=== PATIENT | female | born 1945 | race Caucasian/White ===

== ENCOUNTER → 2017-06-13 08:51 | Outpatient (CLI) | payer MEDICARE, OTHER, SELFPAY ==
[2017-06-13 09:33] LABS: INR 2.89 (0.9-1.1); Prothrombin Time 31.6 seconds (9.4-11.8)
== END ==
PROVIDERS: PCP Physician Assistant; Visit Provider Physician Assistant
DX: Z79.01 Long term (current) use of anticoagulants (principal); I82.409 Acute embolism and thrombosis of unspecified deep veins of unspecified lower extremity; Z51.81 Encounter for therapeutic drug level monitoring
CPT/HCPCS: 36415; 85610

== ENCOUNTER → 2017-06-20 10:05 | Outpatient (CLI) | payer MEDICARE, SELFPAY ==
[2017-06-20 10:31] LABS: INR 3.47 (0.9-1.1)
== END ==
PROVIDERS: PCP Internal Medicine; Visit Provider Internal Medicine Interventional Cardiology
DX: Z79.01 Long term (current) use of anticoagulants (principal); I82.409 Acute embolism and thrombosis of unspecified deep veins of unspecified lower extremity; Z51.81 Encounter for therapeutic drug level monitoring
CPT/HCPCS: 36415; 85610

== ENCOUNTER → 2017-06-27 08:49 | Outpatient (CLI) | payer MEDICARE, SELFPAY ==
[2017-06-27 13:20] LABS: INR 2.29 (0.9-1.1); Prothrombin Time 24.9 seconds (9.4-11.8)
== END ==
PROVIDERS: PCP Internal Medicine; Visit Provider Physician Assistant
DX: Z79.01 Long term (current) use of anticoagulants (principal); Z51.81 Encounter for therapeutic drug level monitoring; I82.409 Acute embolism and thrombosis of unspecified deep veins of unspecified lower extremity
CPT/HCPCS: 36415; 85610

== ENCOUNTER → 2017-07-04 09:21 | Outpatient (CLI) | payer MEDICARE, SELFPAY ==
[2017-07-04 13:27] LABS: INR 2.11 (0.9-1.1)
== END ==
PROVIDERS: PCP Internal Medicine; Visit Provider Physician Assistant
DX: I82.409 Acute embolism and thrombosis of unspecified deep veins of unspecified lower extremity (principal)
CPT/HCPCS: 36415; 85610

== ENCOUNTER → 2017-07-11 07:31 | Outpatient (CLI) | payer MEDICARE, OTHER, SELFPAY ==
[2017-07-11 14:28] LABS: INR 1.82 (0.9-1.1); Prothrombin Time 19.8 seconds (9.4-11.8)
== END ==
PROVIDERS: PCP Internal Medicine; Visit Provider Physician Assistant
DX: Z79.01 Long term (current) use of anticoagulants (principal); I82.409 Acute embolism and thrombosis of unspecified deep veins of unspecified lower extremity; Z51.81 Encounter for therapeutic drug level monitoring
CPT/HCPCS: 36415; 85610

== ENCOUNTER → 2017-07-17 09:39 | Outpatient (CLI) | payer MEDICARE, SELFPAY ==
[2017-07-17 14:38] LABS: INR 2.19 (0.9-1.1); Prothrombin Time 23.9 seconds (9.4-11.8)
== END ==
PROVIDERS: PCP Physician Assistant; Visit Provider Physician Assistant
DX: Z79.01 Long term (current) use of anticoagulants (principal); Z51.81 Encounter for therapeutic drug level monitoring
CPT/HCPCS: 36415; 85610

== ENCOUNTER → 2017-07-24 08:25 | Outpatient (CLI) | payer MEDICARE, SELFPAY ==
[2017-07-24 14:32] LABS: INR 1.78 (0.9-1.1); Prothrombin Time 19.3 seconds (9.4-11.8)
== END ==
PROVIDERS: PCP Physician Assistant; Visit Provider Physician Assistant
DX: Z79.01 Long term (current) use of anticoagulants (principal); Z51.81 Encounter for therapeutic drug level monitoring; I82.409 Acute embolism and thrombosis of unspecified deep veins of unspecified lower extremity
CPT/HCPCS: 36415; 85610

== ENCOUNTER → 2017-07-30 08:58 | Outpatient (CLI) | payer MEDICARE, SELFPAY ==
[2017-07-30 15:13] LABS: INR 1.77 (0.9-1.1); Prothrombin Time 19.2 seconds (9.4-11.8)
== END ==
PROVIDERS: PCP Internal Medicine; Visit Provider Physician Assistant
DX: Z79.01 Long term (current) use of anticoagulants (principal); Z51.81 Encounter for therapeutic drug level monitoring
CPT/HCPCS: 36415; 85610

== ENCOUNTER → 2017-08-06 09:55 | Outpatient (CLI) | payer MEDICARE, OTHER, SELFPAY ==
[2017-08-06 10:35] LABS: INR 2.61 (0.9-1.1); Prothrombin Time 28.5 seconds (9.4-11.8)
== END ==
PROVIDERS: PCP Internal Medicine; Visit Provider Physician Assistant
DX: Z79.01 Long term (current) use of anticoagulants (principal); Z51.81 Encounter for therapeutic drug level monitoring; I82.409 Acute embolism and thrombosis of unspecified deep veins of unspecified lower extremity
CPT/HCPCS: 36415; 85610

== ENCOUNTER → 2017-08-13 08:47 | Outpatient (CLI) | payer MEDICARE, SELFPAY ==
[2017-08-13 09:54] LABS: Prothrombin Time 29.5 seconds (9.4-11.8)
== END ==
PROVIDERS: Visit Provider Physician Assistant
DX: Z79.01 Long term (current) use of anticoagulants; Z51.81 Encounter for therapeutic drug level monitoring; I82.409 Acute embolism and thrombosis of unspecified deep veins of unspecified lower extremity
CPT/HCPCS: 36415; 85610

== ENCOUNTER → 2017-08-20 10:51 | Outpatient (CLI) | payer MEDICARE, SELFPAY ==
[2017-08-20 11:25] LABS: INR 2.92 (0.9-1.1); Prothrombin Time 31.9 seconds (9.4-11.8)
== END ==
PROVIDERS: Visit Provider Physician Assistant
DX: Z79.01 Long term (current) use of anticoagulants (principal); Z51.81 Encounter for therapeutic drug level monitoring
CPT/HCPCS: 36415; 85610

== ENCOUNTER → 2017-08-21 08:20 | Outpatient (CLI) | payer MEDICARE, SELFPAY ==
[2017-08-21 13:44] LABS: Alanine Aminotransferase 34 U/L (12-78); Albumin Level 3.6 gm/dL (3.4-5.0); Alkaline Phosphatase 68 U/L (46-116); Aspartate Amino Transferase 21 U/L (15-37); Bilirubin,Direct 0.1 mg/dL (0.0-0.2); Bilirubin,Total 0.3 mg/dL (0.2-1.0); Chol/HDL Ratio 2.6 (1-3.5); Cholesterol 150 mg/dL (140-200); HDL Cholesterol 58 mg/dL (29-89); LDL Cholesterol 80 mg/dL (0-130); Total Protein,Serum 6.9 gm/dL (6.4-8.2); Triglycerides 58 mg/dL (30-200); VLDL Cholesterol 12 mg/dL (0-40)
== END ==
PROVIDERS: Visit Provider Internal Medicine Interventional Cardiology
DX: E78.00 Pure hypercholesterolemia, unspecified (principal)
CPT/HCPCS: 36415; 80061; 80076

== ENCOUNTER → 2017-08-27 10:45 | Outpatient (CLI) | payer MEDICARE, OTHER, SELFPAY ==
[2017-08-27 11:19] LABS: INR 3.93 (0.9-1.1)
== END ==
PROVIDERS: Visit Provider Physician Assistant
DX: Z79.01 Long term (current) use of anticoagulants (principal); Z51.81 Encounter for therapeutic drug level monitoring; I82.409 Acute embolism and thrombosis of unspecified deep veins of unspecified lower extremity
CPT/HCPCS: 36415; 85610

== ENCOUNTER → 2017-09-03 07:56 | Outpatient (CLI) | payer MEDICARE, SELFPAY ==
[2017-09-03 08:21] LABS: INR 2.28 (0.9-1.1); Prothrombin Time 24.8 seconds (9.4-11.8)
== END ==
PROVIDERS: Visit Provider Internal Medicine Interventional Cardiology
DX: Z79.01 Long term (current) use of anticoagulants (principal); Z51.81 Encounter for therapeutic drug level monitoring; I82.409 Acute embolism and thrombosis of unspecified deep veins of unspecified lower extremity
CPT/HCPCS: 36415; 85610

== ENCOUNTER → 2017-09-10 09:37 | Outpatient (CLI) | payer MEDICARE, SELFPAY ==
[2017-09-10 10:19] LABS: Prothrombin Time 44.9 seconds (9.4-11.8)
== END ==
PROVIDERS: Visit Provider Physician Assistant
DX: Z79.01 Long term (current) use of anticoagulants (principal); Z51.81 Encounter for therapeutic drug level monitoring; I82.409 Acute embolism and thrombosis of unspecified deep veins of unspecified lower extremity
CPT/HCPCS: 36415; 85610

== ENCOUNTER → 2017-09-17 10:07 | Outpatient (CLI) | payer MEDICARE, OTHER, SELFPAY ==
[2017-09-17 10:47] LABS: INR 2.41 (0.9-1.1); Prothrombin Time 26.3 seconds (9.4-11.8)
== END ==
PROVIDERS: PCP Physician Assistant; Visit Provider Physician Assistant
DX: Z79.01 Long term (current) use of anticoagulants (principal); Z51.81 Encounter for therapeutic drug level monitoring; I82.409 Acute embolism and thrombosis of unspecified deep veins of unspecified lower extremity
CPT/HCPCS: 36415; 85610

== ENCOUNTER → 2017-09-24 10:10 | Outpatient (CLI) | payer MEDICARE, SELFPAY ==
[2017-09-24 10:40] LABS: INR 2.65 (0.9-1.1); Prothrombin Time 28.9 seconds (9.4-11.8)
== END ==
PROVIDERS: Visit Provider Internal Medicine Interventional Cardiology
DX: Z79.01 Long term (current) use of anticoagulants (principal); Z51.81 Encounter for therapeutic drug level monitoring; I82.409 Acute embolism and thrombosis of unspecified deep veins of unspecified lower extremity
CPT/HCPCS: 36415; 85610

== ENCOUNTER → 2017-10-01 09:48 | Outpatient (CLI) | payer MEDICARE, SELFPAY ==
[2017-10-01 10:38] LABS: INR 2.89 (0.9-1.1); Prothrombin Time 31.6 seconds (9.4-11.8)
== END ==
PROVIDERS: Visit Provider Physician Assistant
DX: Z79.01 Long term (current) use of anticoagulants (principal); Z51.81 Encounter for therapeutic drug level monitoring; I82.409 Acute embolism and thrombosis of unspecified deep veins of unspecified lower extremity
CPT/HCPCS: 36415; 85610

== ENCOUNTER → 2017-10-08 10:51 | Outpatient (CLI) | payer MEDICARE, SELFPAY ==
[2017-10-08 11:13] LABS: INR 2.55 (0.9-1.1); Prothrombin Time 27.8 seconds (9.4-11.8)
== END ==
PROVIDERS: Visit Provider Physician Assistant
DX: Z79.01 Long term (current) use of anticoagulants (principal); Z51.81 Encounter for therapeutic drug level monitoring; I82.409 Acute embolism and thrombosis of unspecified deep veins of unspecified lower extremity
CPT/HCPCS: 36415; 85610

== ENCOUNTER → 2017-10-15 06:58 | Outpatient (CLI) | payer MEDICARE, SELFPAY ==
[2017-10-15 14:59] LABS: INR 3.29 (0.9-1.1)
== END ==
PROVIDERS: Visit Provider Physician Assistant
DX: Z79.01 Long term (current) use of anticoagulants (principal); Z51.81 Encounter for therapeutic drug level monitoring; I82.409 Acute embolism and thrombosis of unspecified deep veins of unspecified lower extremity
CPT/HCPCS: 36415; 85610

== ENCOUNTER → 2017-10-22 11:17 | Outpatient (CLI) | payer MEDICARE, SELFPAY ==
[2017-10-22 11:42] LABS: INR 3.06 (0.9-1.1); Prothrombin Time 33.4 seconds (9.4-11.8)
== END ==
PROVIDERS: Visit Provider Physician Assistant
DX: Z79.01 Long term (current) use of anticoagulants (principal); Z51.81 Encounter for therapeutic drug level monitoring; I82.409 Acute embolism and thrombosis of unspecified deep veins of unspecified lower extremity
CPT/HCPCS: 36415; 85610

== ENCOUNTER → 2018-02-05 09:49 | Outpatient (CLI) | payer MEDICARE, SELFPAY ==
[2018-02-05 10:33] LABS: Basophils % 0.9 % (0.1-2.0); Eosinophils # 0.1 K/mm3 (0.0-0.4); Eosinophils % 1.6 % (0.1-12.0); Hematocrit 42.8 % (37.0-47.0); Hemoglobin 14.2 g/dL (12.2-16.2); Lymphocytes # 1.5 K/mm3 (0.7-4.5); Lymphocytes % 37.7 K/mm3 (10-50); Mean Corpuscular HGB Conc 33.1 g/dL (31.8-35.4); Mean Corpuscular Hemoglobin 32.4 pg (27.0-31.2); Mean Platelet Volume 8.2 fl (7.4-10.4); Monocytes # 0.2 K/mm3 (0.1-1.0); Monocytes % 5.5 % (1.7-9.3); Neutrophils # 2.1 K/mm3 (1.8-7.8); Neutrophils % 54.3 % (37.0-80.0); Platelet Count 279 K/mm3 (142-424); Red Blood Count 4.37 M/mm3 (4.20-5.40); Red Cell Distribution Width 12.9 % (11.5-17.5); White Blood Count 3.9 K/mm3 (4.8-10.8)
[2018-02-05 11:21] LABS: Alanine Aminotransferase 34 U/L (12-78); Albumin Level 4.4 gm/dL (3.4-5.0); Albumin/Globulin Ratio 1.2 (1.1-1.8); Alkaline Phosphatase 79 U/L (46-116); Anion Gap 12.5 mEq/L (5-15); Aspartate Amino Transferase 24 U/L (15-37); Bilirubin,Total 0.5 mg/dL (0.2-1.0); Blood Urea Nitrogen 19 mg/dL (7-18); Calcium 9.3 mg/dL (8.5-10.1); Carbon Dioxide 30 mmol/L (21.0-32.0); Chloride 103 mmol/L (98-107); Chol/HDL Ratio 2.3 (1-3.5); Cholesterol 149 mg/dL (140-200); Creatinine,Serum 1.09 mg/dL (0.55-1.02); Estimated Glomerular Filt Rate 50 ml/min (>60); GFR (African American) 60 ML/MIN (>60); Globulin 3.6 gm/dl (1.3-3.2); Glucose 107 mg/dL (74-106); HDL Cholesterol 66 mg/dL (29-89); LDL Cholesterol 70 mg/dL (0-130); Potassium 4.5 mmoL/L (3.5-5.1); Sodium 141 mmol/L (136-145); Thyroid Stimulating Hormone 1.24 uIU/ml (0.358-3.740); Triglycerides 64 mg/dL (30-200); VLDL Cholesterol 13 mg/dL (0-40)
== END ==
PROVIDERS: PCP Internal Medicine; Visit Provider Internal Medicine
DX: I10 Essential (primary) hypertension (principal); E03.9 Hypothyroidism, unspecified; E78.5 Hyperlipidemia, unspecified
CPT/HCPCS: 36415; 80053; 80061; 84443; 85025

== ENCOUNTER → 2018-03-06 09:40 | Outpatient (CLI) | payer MEDICARE, OTHER, SELFPAY ==
[2018-03-06 14:15] LABS: Basophils % 0.6 % (0.1-2.0); Eosinophils # 0.1 K/mm3 (0.0-0.4); Hematocrit 41.1 % (37.0-47.0); Hemoglobin 13.1 g/dL (12.2-16.2); Lymphocytes # 1.4 K/mm3 (0.7-4.5); Lymphocytes % 33.5 K/mm3 (10-50); Mean Corpuscular HGB Conc 31.9 g/dL (31.8-35.4); Mean Corpuscular Hemoglobin 31.5 pg (27.0-31.2); Mean Corpuscular Volume 98.7 fl (81-99); Mean Platelet Volume 9.3 fl (7.4-10.4); Monocytes # 0.2 K/mm3 (0.1-1.0); Monocytes % 5.9 % (1.7-9.3); Neutrophils # 2.4 K/mm3 (1.8-7.8); Platelet Count 260 K/mm3 (142-424); Red Blood Count 4.16 M/mm3 (4.20-5.40); Red Cell Distribution Width 12.9 % (11.5-17.5); White Blood Count 4.1 K/mm3 (4.8-10.8)
[2018-03-06 14:17] LABS: Anion Gap 10.2 mEq/L (5-15); Blood Urea Nitrogen 16 mg/dL (7-18); Calcium 8.8 mg/dL (8.5-10.1); Carbon Dioxide 30 mmol/L (21.0-32.0); Chloride 106 mmol/L (98-107); Creatinine,Serum 0.95 mg/dL (0.55-1.02); Estimated Glomerular Filt Rate 58 ml/min (>60); GFR (African American) 70 ML/MIN (>60); Glucose 117 mg/dL (74-106); Potassium 4.2 mmoL/L (3.5-5.1); Sodium 142 mmol/L (136-145)
== END ==
PROVIDERS: PCP Internal Medicine; Visit Provider Internal Medicine
DX: E03.9 Hypothyroidism, unspecified (principal); E78.5 Hyperlipidemia, unspecified; I10 Essential (primary) hypertension; M19.90 Unspecified osteoarthritis, unspecified site
CPT/HCPCS: 36415; 80048; 85025

== ENCOUNTER → 2018-06-17 10:11 | Outpatient (CLI) | payer MEDICARE, SELFPAY ==
[2018-06-17 14:01] LABS: INR 1.84 (0.9-1.1); Prothrombin Time 18.6 seconds (9.4-11.8)
== END ==
PROVIDERS: PCP Internal Medicine; Visit Provider Physician Assistant
DX: Z51.81 Encounter for therapeutic drug level monitoring (principal); Z79.01 Long term (current) use of anticoagulants; I82.409 Acute embolism and thrombosis of unspecified deep veins of unspecified lower extremity
CPT/HCPCS: 36415; 85610

== ENCOUNTER → 2018-08-07 09:46 | Outpatient (CLI) | payer MEDICARE, OTHER, SELFPAY ==
[2018-08-07 14:20] LABS: Alanine Aminotransferase 31 U/L (12-78); Albumin Level 4.1 gm/dL (3.4-5.0); Alkaline Phosphatase 69 U/L (46-116); Aspartate Amino Transferase 21 U/L (15-37); Bilirubin,Direct 0.1 mg/dL (0.0-0.2); Bilirubin,Indirect 0.3 mg/dL (0.0-0.9); Bilirubin,Total 0.4 mg/dL (0.2-1.0); Chol/HDL Ratio 2.2 (1-3.5); Cholesterol 124 mg/dL (140-200); HDL Cholesterol 57 mg/dL (29-89); LDL Cholesterol 57 mg/dL (0-130); Total Protein,Serum 7.5 gm/dL (6.4-8.2); Triglycerides 52 mg/dL (30-200); VLDL Cholesterol 10 mg/dL (0-40)
[2018-08-07 14:31] LABS: Thyroid Stimulating Hormone 1.56 uIU/ml (0.358-3.740)
== END ==
PROVIDERS: PCP Internal Medicine; Visit Provider Internal Medicine Interventional Cardiology
DX: E78.00 Pure hypercholesterolemia, unspecified (principal); E03.9 Hypothyroidism, unspecified
CPT/HCPCS: 36415; 80061; 80076; 84443

== ENCOUNTER → 2019-04-21 07:03 | Outpatient (CLI) | payer MEDICARE, OTHER, SELFPAY ==
[2019-04-21 13:58] LABS: Alanine Aminotransferase 23 U/L (12-78); Albumin Level 3.4 gm/dL (3.4-5.0); Alkaline Phosphatase 55 U/L (46-116); Aspartate Amino Transferase 23 U/L (15-37); Bilirubin,Direct 0.1 mg/dL (0.0-0.2); Bilirubin,Indirect 0.3 mg/dL (0.0-0.9); Bilirubin,Total 0.4 mg/dL (0.2-1.0); Chol/HDL Ratio 2.5 (1-3.5); Cholesterol 132 mg/dL (140-200); HDL Cholesterol 52 mg/dL (29-89); LDL Cholesterol 69 mg/dL (0-130); Total Protein,Serum 6.4 gm/dL (6.4-8.2); Triglycerides 55 mg/dL (30-200); VLDL Cholesterol 11 mg/dL (0-40)
== END ==
PROVIDERS: PCP Internal Medicine; Visit Provider Internal Medicine Interventional Cardiology
DX: E78.00 Pure hypercholesterolemia, unspecified (principal)
CPT/HCPCS: 36415; 80061; 80076

== ENCOUNTER → 2019-06-18 13:26 | Outpatient (CLI) | payer MEDICARE, OTHER, SELFPAY ==
[2019-06-18 16:06] LABS: Alanine Aminotransferase 25 U/L (12-78); Albumin Level 3.8 gm/dL (3.4-5.0); Alkaline Phosphatase 64 U/L (46-116); Aspartate Amino Transferase 26 U/L (15-37); Bilirubin,Direct 0.1 mg/dL (0.0-0.2); Bilirubin,Indirect 0.3 mg/dL (0.0-0.9); Bilirubin,Total 0.4 mg/dL (0.2-1.0); Chol/HDL Ratio 3.8 (1-3.5); Cholesterol 215 mg/dL (140-200); HDL Cholesterol 56 mg/dL (29-89); LDL Cholesterol 139 mg/dL (0-130); Total Protein,Serum 6.9 gm/dL (6.4-8.2); Triglycerides 98 mg/dL (30-200); VLDL Cholesterol 20 mg/dL (0-40)
== END ==
PROVIDERS: Visit Provider Internal Medicine Interventional Cardiology
DX: E78.00 Pure hypercholesterolemia, unspecified (principal)
CPT/HCPCS: 36415; 80061; 80076

== ENCOUNTER → 2019-07-28 07:04 | Outpatient (CLI) | payer MEDICARE, OTHER, SELFPAY ==
[2019-07-28 13:52] LABS: Alanine Aminotransferase 29 U/L (9-52); Albumin Level 3.8 g/dL (3.4-5.0); Alkaline Phosphatase 61 U/L (46-116); Aspartate Amino Transferase 24 U/L (15-37); Bilirubin,Direct 0.1 mg/dL (0.0-0.2); Bilirubin,Indirect 0.3 mg/dL (0.0-0.9); Bilirubin,Total 0.4 mg/dL (0.2-1.0); Chol/HDL Ratio 4.2 (1-3.5); Cholesterol 254 mg/dL (140-200); HDL Cholesterol 61 mg/dL (29-89); LDL Cholesterol 176 mg/dL (0-130); Total Protein,Serum 7.2 g/dL (6.4-8.2); Triglycerides 83 mg/dL (30-200); VLDL Cholesterol 17 mg/dL (0-40)
== END ==
PROVIDERS: Visit Provider Internal Medicine Interventional Cardiology
DX: E78.00 Pure hypercholesterolemia, unspecified (principal)
CPT/HCPCS: 36415; 80061; 80076

== ENCOUNTER → 2019-12-08 07:07 | Outpatient (CLI) | payer MEDICARE, OTHER, SELFPAY ==
[2019-12-08 14:18] LABS: Alanine Aminotransferase 19 U/L (12-78); Alkaline Phosphatase 60 U/L (38-126); Aspartate Amino Transferase 31 U/L (14-36); Bilirubin,Indirect 0.5 mg/dL (0.0-0.9); Bilirubin,Total 0.5 mg/dl (0.2-1.3); Bilirubin,Unconjugated 0.5 mg/dL (0.0-1.1)
[2019-12-08 14:19] LABS: Albumin Level 3.9 g/dl (3.5-5.0); Chol/HDL Ratio 4.1 (1-3.5); Cholesterol 219 mg/dl (140-200); HDL Cholesterol 54 mg/dl (40-60); Total Protein,Serum 6.9 g/dl (6.3-8.2); Triglycerides 72 mg/dl (30-150); VLDL Cholesterol 14 mg/dL (0-40)
[2019-12-08 14:30] LABS: Direct LDL Cholesterol 138.12 mg/dL (100-129)
== END ==
PROVIDERS: PCP Internal Medicine; Visit Provider Internal Medicine Interventional Cardiology
DX: E78.00 Pure hypercholesterolemia, unspecified (principal)
CPT/HCPCS: 36415; 80061; 80076

== ENCOUNTER → 2020-02-02 07:03 | Outpatient (CLI) | payer MEDICARE, OTHER, SELFPAY ==
[2020-02-02 14:01] LABS: Alanine Aminotransferase 20 U/L (12-78); Albumin Level 3.8 g/dl (3.5-5.0); Alkaline Phosphatase 73 U/L (38-126); Aspartate Amino Transferase 32 U/L (14-36); Bilirubin,Indirect 0.5 mg/dL (0.0-0.9); Bilirubin,Total 0.5 mg/dl (0.2-1.3); Bilirubin,Unconjugated 0.4 mg/dL (0.0-1.1); Chol/HDL Ratio 4.4 (1-3.5); Cholesterol 240 mg/dl (140-200); HDL Cholesterol 55 mg/dl (40-60); Total Protein,Serum 6.9 g/dl (6.3-8.2); Triglycerides 81 mg/dl (30-150); VLDL Cholesterol 16 mg/dL (0-40)
[2020-02-02 14:12] LABS: Direct LDL Cholesterol 145.93 mg/dL (100-129)
== END ==
PROVIDERS: Visit Provider Physician Assistant
DX: E78.00 Pure hypercholesterolemia, unspecified (principal)
CPT/HCPCS: 36415; 80061; 80076

== ENCOUNTER → 2020-03-31 08:23 | Outpatient (CLI) | payer MEDICARE, OTHER, SELFPAY ==
[2020-03-31 09:57] LABS: Alanine Aminotransferase 27 U/L (12-78); Alkaline Phosphatase 68 U/L (38-126); Aspartate Amino Transferase 26 U/L (14-36); Bilirubin,Indirect 0.6 mg/dL (0.0-0.9); Bilirubin,Total 0.6 mg/dl (0.2-1.3); Bilirubin,Unconjugated 0.6 mg/dL (0.0-1.1); Chol/HDL Ratio 2.8 (1-3.5); Cholesterol 162 mg/dl (140-200); HDL Cholesterol 58 mg/dl (40-60); Total Protein,Serum 7.1 g/dl (6.3-8.2); Triglycerides 107 mg/dl (30-150); VLDL Cholesterol 21 mg/dL (0-40)
[2020-03-31 10:19] LABS: Direct LDL Cholesterol 82.45 mg/dL (100-129)
== END ==
PROVIDERS: Visit Provider Internal Medicine Interventional Cardiology
DX: E78.00 Pure hypercholesterolemia, unspecified (principal)
CPT/HCPCS: 36415; 80061; 80076

== ENCOUNTER → 2020-04-12 12:30 | Outpatient (CLI) | payer MEDICARE, OTHER, SELFPAY ==
[2020-04-12 13:33] LABS: INR 3.84 (0.9-1.1); Prothrombin Time 37.7 seconds (9.4-11.8)
== END ==
PROVIDERS: PCP Internal Medicine; Visit Provider Internal Medicine
DX: Z51.81 Encounter for therapeutic drug level monitoring (principal); Z79.01 Long term (current) use of anticoagulants
CPT/HCPCS: 36415; 85610

== ENCOUNTER → 2020-09-09 07:35 | Outpatient (CLI) | payer MEDICARE, OTHER, SELFPAY ==
[2020-09-09 15:25] LABS: Alanine Aminotransferase 24 U/L (12-78); Albumin Level 4.2 g/dl (3.5-5.0); Alkaline Phosphatase 56 U/L (38-126); Aspartate Amino Transferase 35 U/L (14-36); Bilirubin,Indirect 0.3 mg/dL (0.0-0.9); Bilirubin,Total 0.3 mg/dl (0.2-1.3); Bilirubin,Unconjugated 0.4 mg/dL (0.0-1.1); Chol/HDL Ratio 2.9 (1-3.5); Cholesterol 154 mg/dl (140-200); HDL Cholesterol 54 mg/dl (40-60); Total Protein,Serum 7.1 g/dl (6.3-8.2); Triglycerides 69 mg/dl (30-150); VLDL Cholesterol 14 mg/dL (0-40)
[2020-09-09 15:37] LABS: Direct LDL Cholesterol 73.14 mg/dL (100-129)
== END ==
PROVIDERS: Visit Provider Internal Medicine Interventional Cardiology
DX: E78.00 Pure hypercholesterolemia, unspecified (principal)
CPT/HCPCS: 36415; 80061; 80076

== ENCOUNTER → 2020-09-20 12:58 | Outpatient (CLI) | payer MEDICARE, OTHER, SELFPAY ==
--- NOTE | 2020-09-20 13:05 | XR_ITS ---
PROCEDURE: XR FOOT WT BEARING LT 3V CLINICAL INDICATION: pain COMPARISON: No exams were available for comparison FINDINGS: No fracture or dislocation. No lytic or blastic change. There is normal mineralization. There is mild hallux valgus with mild osteoarthritic change at the 1st MTP joint. Osteoarthritic change also present 2nd tarsal metatarsal junction. Normal alignment. Other findings:None. IMPRESSION: Hallux valgus with osteoarthritis of the 1st MTP joint and bunion formation at the distal aspect of the 1st metatarsal. Osteoarthritis also at the 2nd tarsometatarsal junction Dictated by: Wm Gardner MD 09/20/2020 13:36 Wm Gardner MD in [place] 09/20/2020 13:36
--- NOTE | 2020-09-20 13:05 | XR_ITS ---
PROCEDURE: XR FOOT WT BEARING RT 3V CLINICAL INDICATION: pain COMPARISON: No exams were available for comparison FINDINGS: Moderate hallux valgus with osteoarthritis of the 1st MTP joint and bunion formation at the distal aspect of the 1st metatarsal. Osteoarthritic changes are present at the head of the 1st metatarsal with the underlying sesamoid. Osteoarthritic changes are present at the tarsal metatarsal junction. There is a small calcaneal spur. Small area of exostosis involves the mid aspect of the medial cuneiform anteriorly and at the base of the 1st metatarsal medially IMPRESSION: Hallux valgus with osteoarthritis of the 1st MTP joint and bunion formation at the distal aspect of the 1st metatarsal. Osteoarthritic changes Dictated by: Wm Gardner MD 09/20/2020 13:44 Wm Gardner MD in [place] 09/20/2020 13:44
== END ==
PROVIDERS: PCP Internal Medicine; Visit Provider Nurse Practitioner
DX: M79.672 Pain in left foot (principal); M79.671 Pain in right foot
CPT/HCPCS: 73630

== ENCOUNTER → 2020-11-11 07:25 | Outpatient (CLI) | payer MEDICARE, OTHER, SELFPAY ==
[2020-11-11 13:21] LABS: Alanine Aminotransferase 24 U/L (12-78); Albumin Level 4.1 g/dl (3.5-5.0); Alkaline Phosphatase 66 U/L (38-126); Aspartate Amino Transferase 32 U/L (14-36); Bilirubin,Direct 0.2 mg/dl (0.0-0.4); Bilirubin,Indirect 0.3 mg/dL (0.0-0.9); Bilirubin,Total 0.5 mg/dl (0.2-1.3); Bilirubin,Unconjugated 0.2 mg/dL (0.0-1.1); Chol/HDL Ratio 3.3 (1-3.5); Cholesterol 173 mg/dl (140-200); HDL Cholesterol 52 mg/dl (40-60); Total Protein,Serum 7.1 g/dl (6.3-8.2); Triglycerides 92 mg/dl (30-150); VLDL Cholesterol 18 mg/dL (0-40)
[2020-11-11 13:34] LABS: Direct LDL Cholesterol 86.44 mg/dL (100-129)
== END ==
PROVIDERS: Visit Provider Internal Medicine Interventional Cardiology
DX: E78.00 Pure hypercholesterolemia, unspecified (principal)
CPT/HCPCS: 36415; 80061; 80076

== ENCOUNTER → 2021-02-25 07:32 | Outpatient (CLI) | payer MEDICARE, OTHER, SELFPAY ==
[2021-02-25 13:44] LABS: Basophils % 0.5 % (0.1-2.0); Eosinophils # 0.1 K/mm3 (0.0-0.4); Eosinophils % 1.8 % (0.1-12.0); Hematocrit 42.4 % (37.0-47.0); Hemoglobin 13.5 g/dL (12.2-16.2); Lymphocytes # 1.4 K/mm3 (0.7-4.5); Lymphocytes % 33.9 % (10-50); Mean Corpuscular HGB Conc 31.9 g/dL (31.8-35.4); Mean Corpuscular Hemoglobin 32.5 pg (27.0-31.2); Mean Corpuscular Volume 101.8 fl (81-99); Mean Platelet Volume 10.3 fl (7.4-10.4); Monocytes # 0.3 K/mm3 (0.1-1.0); Monocytes % 6.3 % (1.7-9.3); Neutrophils # 2.4 K/mm3 (1.8-7.8); Neutrophils % 57.5 % (37.0-80.0); Platelet Count 258 K/mm3 (142-424); Red Blood Count 4.16 M/mm3 (4.20-5.40); Red Cell Distribution Width 12.8 % (11.5-17.5); White Blood Count 4.2 K/mm3 (4.8-10.8)
[2021-02-25 13:51] LABS: Chloride 103 mmol/L (98-107); Potassium 4.3 mmoL/L (3.5-5.1); Sodium 139 mmol/L (136-145)
[2021-02-25 13:53] LABS: Blood Urea Nitrogen 16 mg/dl (7-17); Estimated Glomerular Filt Rate 82 ml/min (>60); GFR (African American) 99 ML/MIN (>60)
[2021-02-25 13:54] LABS: Alanine Aminotransferase 23 U/L (12-78); Albumin Level 3.8 g/dl (3.5-5.0); Alkaline Phosphatase 67 U/L (38-126); Anion Gap 10.3 mEq/L (5-15); Aspartate Amino Transferase 32 U/L (14-36); Bilirubin,Direct 0.1 mg/dl (0.0-0.4); Bilirubin,Indirect 0.4 mg/dL (0.0-0.9); Bilirubin,Total 0.5 mg/dl (0.2-1.3); Bilirubin,Unconjugated 0.4 mg/dL (0.0-1.1); Calcium 9.6 mg/dl (8.4-10.2); Carbon Dioxide 30 mmol/L (22.0-30.0); Chol/HDL Ratio 2.9 (1-3.5); Cholesterol 159 mg/dl (140-200); Glucose 103 mg/dl (74-100); HDL Cholesterol 55 mg/dl (40-60); Total Protein,Serum 6.9 g/dl (6.3-8.2); Triglycerides 85 mg/dl (30-150); VLDL Cholesterol 17 mg/dL (0-40)
[2021-02-25 14:05] LABS: Direct LDL Cholesterol 73.54 mg/dL (100-129)
== END ==
PROVIDERS: Visit Provider Internal Medicine Interventional Cardiology
DX: I10 Essential (primary) hypertension (principal); E78.00 Pure hypercholesterolemia, unspecified
CPT/HCPCS: 36415; 80048; 80061; 80076; 85025

== ENCOUNTER → 2021-03-10 15:10 | Outpatient (CLI) | payer MEDICARE, OTHER, SELFPAY | PROVIDERS: PCP Internal Medicine; Visit Provider Nurse Practitioner | DX: Z20.822 Contact with and (suspected) exposure to COVID-19 (principal); U07.1 COVID-19 | CPT/HCPCS: C9803; U0003; U0005 ==

== ENCOUNTER 2021-03-13 09:41 | Outpatient (CLI) | payer MEDICARE, OTHER, SELFPAY ==
[2021-03-13] VITALS (7 sets, daily range): BP systolic 103–116; BP diastolic 43–56; PULSE 60–66; RESP 16–18; TEMP 36.5–36.8; O2SAT 95–100
== END 2021-03-13 12:15 | disposition home or self-care (01) ==
PROVIDERS: PCP Internal Medicine; Visit Provider Internal Medicine
DX: U07.1 COVID-19 (principal)
CPT/HCPCS: 96365

== ENCOUNTER 2021-04-14 17:04 | Emergency (ER) | payer MEDICARE, OTHER, SELFPAY ==
[2021-04-14 17:05] VITALS: BP 196/99; PULSE 76; RESP 20; TEMP 36.7; O2SAT 98; BMI 27.3
--- NOTE | 2021-04-14 17:31 | XR_ITS ---
PROCEDURE INFORMATION: Exam: XR Chest Exam date and time: 04/14/2021 5:31 PM Age: 75 years old Clinical indication: Other: High; Additional info: High BP TECHNIQUE: Imaging protocol: XR of the chest. Views: 2 views. COMPARISON: CR CXR CHEST(2 VIEWS-NOT PORTABLE) 06/29/2014 10:16 AM FINDINGS: Lungs: Unremarkable. No consolidation. Pleural spaces: Unremarkable. No pleural effusion. No pneumothorax. Heart/Mediastinum: Unremarkable. No cardiomegaly. Bones/joints: Unremarkable. IMPRESSION: No acute findings.
--- NOTE | 2021-04-14 18:00 | ECG_ITS ---
APPROVED REPORT Exam: Resting ECG HR:70 bpm ECG Measurements Heart Rate 70 AXES NE 168 P 74 QRSd 90 QRS 39 QT 374 T 51 QTc 403 Conclusion Normal sinus rhythm Possible Left atrial enlargement Septal infarct, age undetermined Abnormal ECG Electronically signed by : Sae Bay MD 04/15/2021 22:38:15
[2021-04-14 18:18] LABS: Basophils # 0.1 K/mm3 (0-0.2); Basophils % 1.6 % (0.1-2.0); Eosinophils # 0.1 K/mm3 (0.0-0.4); Eosinophils % 1.9 % (0.1-12.0); Hematocrit 41.1 % (37.0-47.0); Hemoglobin 13.3 g/dL (12.2-16.2); Lymphocytes # 1.7 K/mm3 (0.7-4.5); Lymphocytes % 26.9 % (10-50); Mean Corpuscular HGB Conc 32.2 g/dL (31.8-35.4); Mean Corpuscular Hemoglobin 32.2 pg (27.0-31.2); Mean Corpuscular Volume 100.1 fl (81-99); Mean Platelet Volume 7.8 fl (7.4-10.4); Monocytes # 0.4 K/mm3 (0.1-1.0); Monocytes % 6.3 % (1.7-9.3); Neutrophils # 3.9 K/mm3 (1.8-7.8); Neutrophils % 63.2 % (37.0-80.0); Platelet Count 304 K/mm3 (142-424); Red Blood Count 4.11 M/mm3 (4.20-5.40); Red Cell Distribution Width 13.5 % (11.5-17.5); White Blood Count 6.2 K/mm3 (4.8-10.8)
[2021-04-14 18:21] LABS: Chloride 92 mmol/L (98-107)
[2021-04-14 18:22] LABS: Potassium 3.9 mmoL/L (3.5-5.1); Sodium 131 mmol/L (136-145)
[2021-04-14 18:24] LABS: Alanine Aminotransferase 32 U/L (12-78); Alkaline Phosphatase 69 U/L (38-126); Aspartate Amino Transferase 42 U/L (14-36); Bilirubin,Total 0.3 mg/dl (0.2-1.3); Blood Urea Nitrogen 9 mg/dl (7-17); Creatinine Clearance Estimated 65 mL/min (50-200); Estimated Glomerular Filt Rate 98 ml/min (>60); GFR (African American) 119 ML/MIN (>60)
[2021-04-14 18:25] LABS: Albumin Level 4.3 g/dl (3.5-5.0); Albumin/Globulin Ratio 1.3 (1.1-1.8); Anion Gap 12.9 mEq/L (5-15); Calcium 9.5 mg/dl (8.4-10.2); Carbon Dioxide 30 mmol/L (22.0-30.0); Globulin 3.2 g/dL (1.3-3.2); Glucose 109 mg/dl (74-100); Total Protein,Serum 7.5 g/dl (6.3-8.2)
[2021-04-14 18:38] LABS: Troponin I < 0.01 ng/ml (0.00-0.034)
--- NOTE | 2021-04-14 18:54 | HMH.EDGENADL ---
ED Disposition Clinical Impression: HTN (hypertension) Qualifiers: Hypertension type: primary hypertension Qualified Code(s): I10 - Essential (primary) hypertension Disposition: Home, Self-Care Condition on Discharge: Good Referrals: Marty Campa [Primary Care Provider] - - Critical Care Critical Care Time: No Attestation: On 04/14/21, the high probability of a clinically significant, sudden or life threatening deterioration of the following system(s) required my full and direct attention, intervention and personal management. The time I documented below is in addition to time spent performing reported procedures but includes the following listed in this critical care notation. Medical Decision Making - Medical Records Medical records reviewed: Yes: I reviewed the patient's medical records. - Ortiz Inquiry Pt receiving controlled substance: No Vital Signs: 04/14/21 17:05 04/14/21 19:35 Temperature 98.1 F 98.1 F Temperature Source Oral Pulse Rate 72 Pulse Rate [Left Radial] 76 Respiratory Rate 20 18 Blood Pressure 167/72 H Blood Pressure [Right Arm] 196/99 H Blood Pressure Mean [Right Arm] 131 Blood Pressure Source [Right Arm] Automatic Cuff Blood Pressure Position [Right Arm] Sitting 02 Sat by Pulse Oximetry 98 Oxygen Delivery Method Room Air - Lab Data Lab Results 04/14/21 18:05: WBC 6.2, RBC 4.11 L, Hgb 13.3, Hct 41.1, MCV 100.1 H, MCH 32.2 H, MCHC 32.2, RDW 13.5, Plt Count 304, MPV 7.8, Neut % (Auto) 63.2, Lymph % (Auto) 26.9, [place] % (Auto) 6.3, Eos % (Auto) 1.9, Baso % (Auto) 1.6, Neut # (Auto) 3.9, Lymph # (Auto) 1.7, [place] # (Auto) 0.4, Eos # (Auto) 0.1, Baso # (Auto) 0.1 04/14/21 18:05: Sodium 131 L, Potassium 3.9, Chloride 92 L, Carbon Dioxide 30, Anion Gap 12.9, BUN 9, Creatinine 0.60, Estimated Creat Clear 65, Estimated GFR 98, Est GFR ( Amer) 119, Glucose 109 H, Calcium 9.5, Total Bilirubin 0.3, AST 42 H, ALT 32, Alkaline Phosphatase 69, Troponin I < 0.01, Total Protein 7.5, Albumin 4.3, Globulin 3.2, Albumin/Globulin Ratio 1.3 Result diagrams: 04/14/21 18:05 04/14/21 18:05 Orders (Tests/Meds): ED MEDICATIONS Discontinued Medications Generic Name Dose Route Start Last Admin Trade Name Dat PRN Reason Stop Dose Admin Hydralazine HCl 10 mg 04/14/21 18:02 04/14/21 18:19 Hydralazine 20mg/Ml Vial IV 04/14/21 18:03 10 mg ONCE ONE Administration Medical Decision Narrative: Patient is a 75-year-old female who presented to the emergency department with asymptomatic hypertension. Differential diagnosis this patient includes essential hypertension, psychosocial stressors, anxiety, ACS. Have low suspicion for ACS however did rule out with chest x-ray, EKG, CBC, CMP as well as troponin. Initial troponin was within normal limits. Patient was given 10 of hydralazine while here in the emergency department with decrease of blood pressures from the 190s down to the 160s. Patient's lack of symptoms, blood pressure and pressure management as well as goal for her blood pressure was discussed with her. Follow-up with her primary care physician and continue to keep track of her blood pressures. General Adult HPI - General Chief complaint: Recheck/Abnormal Lab/Rx Stated complaint: high blood pressure Time Seen by Provider: 04/14/21 17:15 Mode of Arrival: Ambulatory Limitations: No Limitations Description of Symptoms (Recalled from ER Triage Doc. by RN): c/o high blood pressure with feeling of numbness in the back of her head. - History of Present Illness HPI narrative: Patient is a 75-year-old female presenting to the emergency department with chief complaint of high blood pressure. She states that she checks her blood pressure every morning and that for the past 3 days it has been high. She also states that every time that her blood pressure gets elevated she has a numb strange feeling at the back of her neck. She also states that she is very anxious for the p
[2021-04-14 19:35] VITALS: BP 167/72; PULSE 72; RESP 18; TEMP 36.7; O2SAT 98
== END 2021-04-14 19:37 | disposition home or self-care (01) ==
PROVIDERS: Emergency Provider Emergency Medicine; PCP Internal Medicine
DX: R20.2 Paresthesia of skin (principal); I10 Essential (primary) hypertension
CPT/HCPCS: 71046; 80053; 84484; 85025; 93005; 96374; 99283

== ENCOUNTER → 2021-04-26 07:45 | Outpatient (CLI) | payer MEDICARE, OTHER, SELFPAY ==
[2021-04-26 08:13] LABS: Basophils # 0.1 K/mm3 (0-0.2); Basophils % 0.8 % (0.1-2.0); Eosinophils # 0.1 K/mm3 (0.0-0.4); Eosinophils % 1.2 % (0.1-12.0); Hematocrit 40.2 % (37.0-47.0); Hemoglobin 13.4 g/dL (12.2-16.2); Lymphocytes # 1.5 K/mm3 (0.7-4.5); Lymphocytes % 26.7 % (10-50); Mean Corpuscular HGB Conc 33.3 g/dL (31.8-35.4); Mean Corpuscular Hemoglobin 32.5 pg (27.0-31.2); Mean Corpuscular Volume 97.4 fl (81-99); Mean Platelet Volume 9.2 fl (7.4-10.4); Monocytes # 0.3 K/mm3 (0.1-1.0); Monocytes % 5.8 % (1.7-9.3); Neutrophils # 3.7 K/mm3 (1.8-7.8); Neutrophils % 65.4 % (37.0-80.0); Platelet Count 341 K/mm3 (142-424); Red Blood Count 4.13 M/mm3 (4.20-5.40); Red Cell Distribution Width 13.4 % (11.5-17.5); White Blood Count 5.6 K/mm3 (4.8-10.8)
[2021-04-26 08:50] LABS: Alanine Aminotransferase 37 U/L (12-78); Albumin Level 4.2 g/dl (3.5-5.0); Alkaline Phosphatase 53 U/L (38-126); Anion Gap 10.4 mEq/L (5-15); Aspartate Amino Transferase 44 U/L (14-36); Bilirubin,Indirect 0.4 mg/dL (0.0-0.9); Bilirubin,Total 0.4 mg/dl (0.2-1.3); Bilirubin,Unconjugated 0.4 mg/dL (0.0-1.1); Blood Urea Nitrogen 12 mg/dl (7-17); Calcium 9.7 mg/dl (8.4-10.2); Carbon Dioxide 32 mmol/L (22.0-30.0); Chloride 95 mmol/L (98-107); Chol/HDL Ratio 2.2 (1-3.5); Cholesterol 136 mg/dl (140-200); Estimated Glomerular Filt Rate 98 ml/min (>60); GFR (African American) 119 ML/MIN (>60); Glucose 118 mg/dl (74-100); HDL Cholesterol 61 mg/dl (40-60); Potassium 4.4 mmoL/L (3.5-5.1); Sodium 133 mmol/L (136-145); Total Protein,Serum 7.1 g/dl (6.3-8.2); Triglycerides 66 mg/dl (30-150); VLDL Cholesterol 13 mg/dL (0-40)
[2021-04-26 09:00] LABS: Direct LDL Cholesterol 84.62 mg/dL (100-129)
== END ==
PROVIDERS: Visit Provider Physician Assistant
DX: I10 Essential (primary) hypertension (principal); E78.00 Pure hypercholesterolemia, unspecified
CPT/HCPCS: 36415; 80048; 80061; 80076; 85025

== ENCOUNTER → 2021-06-14 11:29 | Outpatient (CLI) | payer MEDICARE, OTHER, SELFPAY ==
[2021-06-14 12:55] LABS: Free T4 (Free Thyroxine) 1.58 ng/dl (0.78-2.19)
[2021-06-14 13:09] LABS: Thyroid Stimulating Hormone 1.96 uIU/mL (0.465-4.68)
== END ==
PROVIDERS: PCP Internal Medicine; Visit Provider Internal Medicine
DX: E03.9 Hypothyroidism, unspecified (principal)
CPT/HCPCS: 36415; 84439; 84443

== ENCOUNTER → 2021-07-04 07:03 | Outpatient (CLI) | payer MEDICARE, OTHER, SELFPAY ==
--- NOTE | 2021-07-04 09:18 | ECG_ITS ---
APPROVED REPORT Exam: Resting ECG HR:69 bpm ECG Measurements Heart Rate 69 AXES AK 157 P 79 QRSd 88 QRS 93 QT 365 T -9 QTc 385 Conclusion SINUS RHYTHM BORDERLINE RIGHT AXIS DEVIATION [QRS AXIS > 90] NONSPECIFIC ST & T-WAVE ABNORMALITY ABNORMAL ECG UNCONFIRMED REPORT Electronically signed by : Sae Bay MD 07/04/2021 18:34:01
[2021-07-04 16:26] LABS: Alanine Aminotransferase 27 U/L (12-78); Alkaline Phosphatase 57 U/L (38-126); Aspartate Amino Transferase 37 U/L (14-36); Bilirubin,Direct 0.1 mg/dl (0.0-0.4); Bilirubin,Indirect 0.4 mg/dL (0.0-0.9); Bilirubin,Total 0.5 mg/dl (0.2-1.3); Bilirubin,Unconjugated 0.4 mg/dL (0.0-1.1); Chol/HDL Ratio 4.7 (1-3.5); Cholesterol 227 mg/dl (140-200); HDL Cholesterol 48 mg/dl (40-60); Total Protein,Serum 6.9 g/dl (6.3-8.2); Triglycerides 87 mg/dl (30-150); VLDL Cholesterol 17 mg/dL (0-40)
[2021-07-04 16:37] LABS: Direct LDL Cholesterol 142.77 mg/dL (100-129)
== END ==
PROVIDERS: Visit Provider Internal Medicine Interventional Cardiology
DX: I10 Essential (primary) hypertension (principal); E78.00 Pure hypercholesterolemia, unspecified
CPT/HCPCS: 36415; 80061; 80076; 93005

== ENCOUNTER → 2021-10-31 08:07 | Outpatient (CLI) | payer MEDICARE, OTHER, SELFPAY ==
[2021-10-31 09:34] LABS: Alanine Aminotransferase 25 U/L (12-78); Albumin Level 4.2 g/dl (3.5-5.0); Alkaline Phosphatase 81 U/L (38-126); Aspartate Amino Transferase 38 U/L (14-36); Bilirubin,Indirect 0.3 mg/dL (0.0-0.9); Bilirubin,Total 0.3 mg/dl (0.2-1.3); Bilirubin,Unconjugated 0.5 mg/dL (0.0-1.1); Chol/HDL Ratio 3.1 (1-3.5); Cholesterol 168 mg/dl (140-200); HDL Cholesterol 54 mg/dl (40-60); Triglycerides 69 mg/dl (30-150); VLDL Cholesterol 14 mg/dL (0-40)
[2021-10-31 09:45] LABS: Direct LDL Cholesterol 73.37 mg/dL (100-129)
== END ==
PROVIDERS: Visit Provider Internal Medicine Interventional Cardiology
DX: E78.00 Pure hypercholesterolemia, unspecified (principal)
CPT/HCPCS: 36415; 80061; 80076

== ENCOUNTER → 2022-01-16 10:05 | Outpatient (CLI) | payer MEDICARE, OTHER, SELFPAY ==
[2022-01-16 10:37] LABS: INR 2.32 (0.9-1.1); Prothrombin Time 24.6 seconds (10.1-12.5)
== END ==
PROVIDERS: PCP Internal Medicine; Visit Provider Internal Medicine
DX: Z51.81 Encounter for therapeutic drug level monitoring (principal); Z79.01 Long term (current) use of anticoagulants; I82.891 Chronic embolism and thrombosis of other specified veins
CPT/HCPCS: 36415; 85610

== ENCOUNTER → 2022-04-17 10:42 | Outpatient (CLI) | payer MEDICARE, OTHER, SELFPAY ==
[2022-04-17 11:37] LABS: Basophils # 0.1 K/mm3 (0-0.2); Eosinophils # 0.1 K/mm3 (0.0-0.4); Eosinophils % 1.5 % (0.1-12.0); Hematocrit 42.8 % (37.0-47.0); Hemoglobin 13.8 g/dL (12.2-16.2); Lymphocytes # 1.5 K/mm3 (0.7-4.5); Lymphocytes % 28.2 % (10-50); Mean Corpuscular HGB Conc 32.1 g/dL (31.8-35.4); Mean Corpuscular Hemoglobin 31.3 pg (27.0-31.2); Mean Corpuscular Volume 97.4 fl (81-99); Mean Platelet Volume 8.7 fl (7.4-10.4); Monocytes # 0.3 K/mm3 (0.1-1.0); Monocytes % 6.3 % (1.7-9.3); Neutrophils # 3.3 K/mm3 (1.8-7.8); Neutrophils % 63.1 % (37.0-80.0); Platelet Count 296 K/mm3 (142-424); White Blood Count 5.3 K/mm3 (4.8-10.8)
[2022-04-17 12:05] LABS: Erythrocyte Sedimentation Rate 24 mm/hr (0-30)
[2022-04-17 12:27] LABS: Alanine Aminotransferase 23 U/L (12-78); Albumin Level 4.3 g/dl (3.5-5.0); Albumin/Globulin Ratio 1.5 (1.1-1.8); Alkaline Phosphatase 92 U/L (38-126); Anion Gap 15.8 mEq/L (5-15); Aspartate Amino Transferase 33 U/L (14-36); Bilirubin,Total 0.4 mg/dl (0.2-1.3); Blood Urea Nitrogen 16 mg/dl (7-17); Calcium 9.8 mg/dl (8.4-10.2); Carbon Dioxide 32 mmol/L (22.0-30.0); Chloride 97 mmol/L (98-107); Estimated Glomerular Filt Rate 54 ml/min (>60); GFR (African American) 66 ML/MIN (>60); Globulin 2.9 g/dL (1.3-3.2); Glucose 88 mg/dl (74-100); Potassium 3.8 mmoL/L (3.5-5.1); Sodium 141 mmol/L (136-145); Total Protein,Serum 7.2 g/dl (6.3-8.2)
[2022-04-17 12:34] LABS: C-Reactive Protein 1.3 mg/L (0-4)
== END ==
PROVIDERS: PCP Internal Medicine; Visit Provider Internal Medicine
DX: M06.9 Rheumatoid arthritis, unspecified (principal); M15.9 Polyosteoarthritis, unspecified; R76.12 Nonspecific reaction to cell mediated immunity measurement of gamma interferon antigen response without active tuberculosis; Z79.899 Other long term (current) drug therapy; Z91.89 Other specified personal risk factors, not elsewhere classified
CPT/HCPCS: 36415; 80053; 85025; 85651; 86140

== ENCOUNTER → 2022-05-24 10:15 | Outpatient (CLI) | payer MEDICARE, OTHER, SELFPAY ==
[2022-05-24 11:39] LABS: Alanine Aminotransferase 28 U/L (12-78); Albumin Level 4.3 g/dl (3.5-5.0); Alkaline Phosphatase 88 U/L (38-126); Aspartate Amino Transferase 36 U/L (14-36); Bilirubin,Indirect 0.3 mg/dL (0.0-0.9); Bilirubin,Total 0.3 mg/dl (0.2-1.3); Bilirubin,Unconjugated 0.3 mg/dL (0.0-1.1); Chol/HDL Ratio 2.9 (1-3.5); Cholesterol 136 mg/dl (140-200); HDL Cholesterol 47 mg/dl (40-60); Total Protein,Serum 6.8 g/dl (6.3-8.2); Triglycerides 60 mg/dl (30-150); VLDL Cholesterol 12 mg/dL (0-40)
[2022-05-24 11:50] LABS: Direct LDL Cholesterol 64.85 mg/dL (100-129)
== END ==
PROVIDERS: PCP Internal Medicine; Visit Provider Internal Medicine Interventional Cardiology
DX: E78.00 Pure hypercholesterolemia, unspecified (principal)
CPT/HCPCS: 36415; 80061; 80076

== ENCOUNTER → 2022-08-15 13:20 | Outpatient (CLI) | payer MEDICARE, OTHER, SELFPAY ==
[2022-08-15 14:12] LABS: Alanine Aminotransferase 23 U/L (12-78); Aspartate Amino Transferase 32 U/L (14-36); Bilirubin,Unconjugated 0.3 mg/dL (0.0-1.1)
[2022-08-15 14:13] LABS: Albumin Level 4.2 g/dl (3.5-5.0); Alkaline Phosphatase 68 U/L (38-126); Bilirubin,Direct 0.2 mg/dl (0.0-0.4); Bilirubin,Indirect 0.2 mg/dL (0.0-0.9); Bilirubin,Total 0.4 mg/dl (0.2-1.3); Chol/HDL Ratio 3.8 (1-3.5); Cholesterol 244 mg/dl (140-200); HDL Cholesterol 64 mg/dl (40-60); Total Protein,Serum 7.1 g/dl (6.3-8.2); Triglycerides 129 mg/dl (30-150); VLDL Cholesterol 26 mg/dL (0-40)
[2022-08-15 14:24] LABS: Direct LDL Cholesterol 125.73 mg/dL (100-129)
[2022-08-15 14:40] LABS: Free T4 (Free Thyroxine) 1.52 ng/dl (0.78-2.19)
[2022-08-16 08:15] LABS: Triiodothyronine (T3) Total 72 ng/dL (71-180)
== END ==
PROVIDERS: PCP Internal Medicine; Visit Provider Internal Medicine Interventional Cardiology
DX: E78.00 Pure hypercholesterolemia, unspecified (principal); Z79.899 Other long term (current) drug therapy
CPT/HCPCS: 36415; 80061; 80076; 84439; 84443; 84480

== ENCOUNTER 2023-07-25 13:58 | Outpatient (CLI) | payer MEDICARE, OTHER, SELFPAY ==
--- NOTE | 2023-07-25 14:04 | US_ITS ---
FINAL REPORT CLINICAL HISTORY: .PVD WHEELCHAIR BOUND FINDINGS: COMPLETE ANKLE/BRACHIAL INDICES BILATERAL Ankle brachial indices were obtained. The right SAL is 1.3. The left SAL is 1.4. IMPRESSION: ABIs are within normal limits bilaterally. Reviewed, Interpreted and Dictated by Efra Haddad III, MD Transcribed by Danielle Rubio Authenticated and [facility]
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
[2023-07-25 15:09] LABS: Blood Urea Nitrogen 15 mg/dl (7-17); Estimated Glomerular Filt Rate 70 ml/min (>60); GFR (African American) 84 ML/MIN (>60)
[2023-07-25] MEDS: GADOTERIDOL INJ 17ML SYRINGE 16 ML IV (16:29)
[2023-07-25] MEDS: SODIUM CHLORIDE 0.9% 10ML SYR (RAD ONLY) 10 ML IV (16:29)
== END 2023-07-25 23:59 ==
PROVIDERS: PCP Internal Medicine; Visit Provider Family Medicine
DX: I73.9 Peripheral vascular disease, unspecified (principal); M54.6 Pain in thoracic spine; V89.2XXA Person injured in unspecified motor-vehicle accident, traffic, initial encounter
CPT/HCPCS: 36415; 72157; 82565; 84520; 93923; A9576

== ENCOUNTER 2023-09-20 11:00 | Outpatient (RCR) | payer MEDICARE, OTHER, MEDICAID, SELFPAY | END 2023-09-20 11:05 | disposition home or self-care (01) | LOC: PT 11:00 | PROVIDERS: Visit Provider Family Medicine | DX: M79.662 Pain in left lower leg (principal); S81.802A Unspecified open wound, left lower leg, initial encounter | CPT/HCPCS: 87070; 87205; 97140; 97163; 97164; 97597 ==

== ENCOUNTER 2023-11-29 14:01 | Emergency (ER) | payer MEDICARE, OTHER, MEDICAID, SELFPAY ==
[2023-11-29] VITALS (17 sets, daily range): BP systolic 117–167; BP diastolic 51–75; PULSE 65–72; RESP 16–19; TEMP 36.5–36.8; O2SAT 95–99; BMI 33.3
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
--- NOTE | 2023-11-29 14:25 | CT_ITS ---
FINAL REPORT TECHNIQUE: After the administration of intravenous contrast, axial images were obtained through the abdomen and pelvis by computed tomography. This study was performed with technique to keep radiation doses as low as reasonably achievable, (ALARA). Individualized dose reduction techniques using automated exposure control or adjustment of the MA and/or KV according to the patient's size were employed. CLINICAL HISTORY: Acute abdominal pain FINDINGS: Abdomen: The lung bases are clear. The liver is normal in size and attenuation. The gallbladder is distended with significant wall thickening suggestive of acute cholecystitis. There is no biliary ductal dilatation. The spleen is unremarkable. The adrenals are normal. The pancreas is unremarkable. The kidneys enhance appropriately. The aorta is normal in caliber. There is no free fluid or adenopathy. There is a burst fracture of the T12 vertebrae which has been treated. No evidence of bowel obstruction is seen. Pelvis: The appendix is normal. There are calcified uterine fibroids. Pelvic bowel loops are unremarkable. The urinary bladder is unremarkable. There is no free fluid or adenopathy. IMPRESSION: Findings suspicious for acute cholecystitis. Uterine fibroids. Reviewed, Interpreted and Dictated by Edouard Lamas MD Transcribed by Rose Rome Authenticated and [facility]
--- NOTE | 2023-11-29 14:26 | XR_ITS ---
FINAL REPORT CLINICAL HISTORY: Acute abdominal pain, right upper quadrant COMPARISON: 01/25/2022 FINDINGS: No acute pulmonary opacity is present. There is no evidence of effusion or pneumothorax. Mediastinum is unremarkable. Heart size is normal. IMPRESSION: No acute abnormality. Reviewed, Interpreted and Dictated by Edouard Lamas MD Transcribed by Danielle Rubio Authenticated and [facility]
[2023-11-29 14:38] LABS: Basophils # 0.1 K/mm3 (0-0.2); Basophils % 0.7 % (0.1-2.0); Eosinophils # 0.1 K/mm3 (0.0-0.4); Eosinophils % 0.6 % (0.1-12.0); Hematocrit 37.4 % (37.0-47.0); Hemoglobin 12.3 g/dL (12.2-16.2); Lymphocytes # 1.7 K/mm3 (0.7-4.5); Lymphocytes % 18.6 % (10-50); Mean Corpuscular Hemoglobin 33.6 pg (27.0-31.2); Mean Corpuscular Volume 101.8 fl (81-99); Mean Platelet Volume 9.9 fl (7.4-10.4); Monocytes # 0.8 K/mm3 (0.1-1.0); Monocytes % 8.4 % (1.7-9.3); Neutrophils # 6.6 K/mm3 (1.8-7.8); Neutrophils % 71.8 % (37.0-80.0); Platelet Count 271 K/mm3 (142-424); Red Blood Count 3.67 M/mm3 (4.20-5.40); Red Cell Distribution Width 13.8 % (11.5-17.5); White Blood Count 9.2 K/mm3 (4.8-10.8)
[2023-11-29 14:39] LABS: Chloride 97 mmol/L (98-107); Potassium 4.1 mmoL/L (3.5-5.1); Sodium 131 mmol/L (136-145)
[2023-11-29 14:42] LABS: Alanine Aminotransferase 562 U/L (12-78); Albumin Level 2.6 g/dl (3.5-5.0); Albumin/Globulin Ratio 0.7 (1.1-1.8); Alkaline Phosphatase 127 U/L (38-126); Anion Gap 8.1 mEq/L (5-15); Aspartate Amino Transferase 551 U/L (14-36); Bilirubin,Total 0.7 mg/dl (0.2-1.3); Blood Urea Nitrogen 26 mg/dl (7-17); Calcium 8.8 mg/dl (8.4-10.2); Carbon Dioxide 30 mmol/L (22.0-30.0); Creatinine Clearance Estimated 69 mL/min (50-200); Estimated Glomerular Filt Rate 81 ml/min (>60); GFR (African American) 98 ML/MIN (>60); Globulin 3.7 g/dL (1.3-3.2); Glucose 160 mg/dl (74-100); Lipase 33 U/L (23-300); Total Protein,Serum 6.3 g/dl (6.3-8.2)
[2023-11-29 14:43] LABS: Magnesium 1.6 mg/dl (1.6-2.3)
--- NOTE | 2023-11-29 14:43 | PC.NURSE ---
PURE-WICK PLACED
[2023-11-29 14:44] LABS: INR 2.85 (0.9-1.1); Prothrombin Time 28.7 seconds (10.1-12.5)
--- NOTE | 2023-11-29 14:52 | PC.NURSE ---
XR AT BEDSIDE
--- NOTE | 2023-11-29 15:04 | PC.NURSE ---
PT TO CT
[2023-11-29] MEDS: IOPAMIDOL-370 (76%);100ML BOTTLE 75 ML IV (15:09)
[2023-11-29] MEDS: SODIUM CHLORIDE 0.9% 10ML SYR (RAD ONLY) 10 ML IV (15:09)
[2023-11-29 15:22] LABS: Procalcitonin 1.92 ng/mL (0.0-2.0)
[2023-11-29] MEDS: ACETAMINOPHEN 1,000MG/100ML VIAL 1000 MG IV (15:36)
[2023-11-29] MEDS: KETOROLAC 30MG/ML VIAL 15 MG IV (15:36)
[2023-11-29] MEDS: LACTATED RINGERS 1000ML 1,000 ML 999 ML IV (15:37)
--- NOTE | 2023-11-29 15:46 | US_ITS ---
PROCEDURE INFORMATION: Exam: US Abdomen, Limited; Right Upper Quadrant Exam date and time: 11/29/2023 4:03 PM Age: 78 years old Clinical indication: Abdominal pain; Other: Ruq; Additional info: Ruq pain, transaminitis TECHNIQUE: Imaging protocol: Real time ultrasound of the abdomen with image documentation. Limited exam focused on the right upper quadrant. COMPARISON: CT ABDOMEN PELVIS W CON 11/29/2023 3:02 PM FINDINGS: Limitations: Limited patient mobility. Liver: The liver was not measured precluding assessment for hepatomegaly. No mass or significant steatosis. Gallbladder: The gallbladder wall thickness measures 0.8 cm. Heterogeneously echogenic and lobulated material is present in the gallbladder. It is unclear whether this represents tumor or lobulated sludge. There is no pericholecystic fluid. Sonographic Loja sign was not reported. The appearance is suspicious for acute cholecystitis. Biliary ducts: The common bile duct measures 0.83 cm, which is borderline enlarged for age. No visible obstructing lesion. Pancreas: The visualized portion of the pancreas is grossly normal. Right kidney: The right kidney measures 9.8 x 5.1 x 6 cm with a volume of 154 mL. Right renal parenchymal echogenicity is normal. There is no hydronephrosis, nephrolithiasis or suspicious mass. Portal venous: The main portal vein has normal hepatopedal flow. IMPRESSION: 1. Findings suspicious for acute cholecystitis, potentially due to a gallbladder tumor. 2. Common bile duct borderline enlarged for age measuring 0.83 cm without visible etiology. COMMENTS: THIS REPORT CONTAINS FINDINGS THAT MAY BE CRITICAL TO PATIENT CARE. A request for a conference call with the ordering provider or ordering provider's care team was submitted at 5:08 PM EDT on 11/29/2023.
--- NOTE | 2023-11-29 16:24 | PC.NURSE ---
echo completed by echo staff. leaving at this time.
--- NOTE | 2023-11-29 16:25 | PC.NURSE ---
ultrasound completed by ultrasound staff.
--- NOTE | 2023-11-29 17:19 | PC.NURSE ---
IMAGES POWER SHARED WITH [facility]
--- NOTE | 2023-11-29 17:23 | PC.NURSE ---
Delta Rojas speaking with [facility] for consult.
--- NOTE | 2023-11-29 18:21 | PC.NURSE ---
REPORT CALLED TO HADLEY JOHNSON AT ED
[2023-11-29] MEDS: PIPERCILLIN/TAZO 3.375 GM in 0.9 % SODIUM CHLORIDE 50 ML IV (19:01)
--- NOTE | 2023-11-29 22:08 | PC.NURSE ---
Pt is ready for transfer. This RN went in and talked to pt and family. Family was asking to dress the patient and this RN stated she could transfer in a gown. Family member became agitated and told this RN that day shift told them that she could get dressed. This RN offered to help and family memeber stated I've been doing it for a year, I got this. This RN felt as if the family member was upset and tried to offer remedies. Pt states she's fine and ready for transfer at this time.
[2023-12-01 07:38] LABS: HBsAg Screen Negative (Negative); HCV Ab Non Reactive (Non Reactive); Hep A Ab, IGM Negative (Negative); Hep B Core Ab, IgM Negative (Negative)
== END 2023-11-29 22:31 | disposition short-term general hospital (02) ==
PROVIDERS: Physician Assistant; Emergency Provider Student in an Organized Health Care Education/Training Program
DX: R10.11 Right upper quadrant pain (principal); R74.01 Elevation of levels of liver transaminase levels; K81.0 Acute cholecystitis; K82.8 Other specified diseases of gallbladder; E87.1 Hypo-osmolality and hyponatremia; I10 Essential (primary) hypertension; Z79.01 Long term (current) use of anticoagulants
CPT/HCPCS: 71045; 74177; 76705; 80053; 80074; 83605; 83690; 83735; 84145; 85025; 85610; 96361; 96365; 96375; 99285; J0131; J1885; J2543; J7120; Q9967

== ENCOUNTER 2023-12-20 14:21 | Emergency (ER) | payer MEDICARE, OTHER, MEDICAID, SELFPAY ==
[2023-12-20] VITALS (9 sets, daily range): BP systolic 139–186; BP diastolic 74–99; PULSE 82–91; RESP 20; TEMP 36.6; O2SAT 94–97; BMI 26.6
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
[2023-12-20 14:46] LABS: Microscopic, Urine URINE MICROSCOPIC (MICROSCOPIC)
[2023-12-20 14:47] LABS: Basophils # 0.1 K/mm3 (0-0.2); Basophils % 0.7 % (0.1-2.0); Eosinophils # 0.1 K/mm3 (0.0-0.4); Eosinophils % 0.9 % (0.1-12.0); Hematocrit 40.7 % (37.0-47.0); Hemoglobin 13.6 g/dL (12.2-16.2); Lymphocytes # 2.1 K/mm3 (0.7-4.5); Mean Corpuscular HGB Conc 33.4 g/dL (31.8-35.4); Mean Corpuscular Hemoglobin 34.1 pg (27.0-31.2); Mean Corpuscular Volume 101.9 fl (81-99); Mean Platelet Volume 7.8 fl (7.4-10.4); Monocytes # 0.4 K/mm3 (0.1-1.0); Monocytes % 4.4 % (1.7-9.3); Neutrophils # 6.4 K/mm3 (1.8-7.8); Neutrophils % 70.9 % (37.0-80.0); Platelet Count 432 K/mm3 (142-424); Red Cell Distribution Width 14.2 % (11.5-17.5)
[2023-12-20 14:48] LABS: Appearance,Urine TURBID (Clear); Bilirubin,Urine Negative (Negative); Blood, Urine 2+ (Negative); Color,Urine YELLOW (Yellow); Glucose,Urine (UA) Negative (Negative); Ketones,Urine Negative (Negative); Leukocyte Esterase,Urine 3+ (Negative); Nitrate,Urine Negative (Negative); Protein,Urine TRACE (Negative); Specific Gravity, Urine 1.015 (1.005-1.030); Urobilinogen,Urine 0.2 EU/dl (0.2)
[2023-12-20 14:56] LABS: Bacteria,Urine 4+ /lpf; WBC,Urine TNTC #/hpf (0-3)
[2023-12-20 14:56] LABS: Chloride 96 mmol/L (98-107); Potassium 4.1 mmoL/L (3.5-5.1); Sodium 129 mmol/L (136-145)
[2023-12-20 14:59] LABS: Alanine Aminotransferase 293 U/L (12-78); Albumin Level 3.4 g/dl (3.5-5.0); Albumin/Globulin Ratio 0.7 (1.1-1.8); Alkaline Phosphatase 179 U/L (38-126); Anion Gap 9.1 mEq/L (5-15); Aspartate Amino Transferase 346 U/L (14-36); Bilirubin,Total 0.7 mg/dl (0.2-1.3); Blood Urea Nitrogen 19 mg/dl (7-17); Calcium 9.9 mg/dl (8.4-10.2); Carbon Dioxide 28 mmol/L (22.0-30.0); Creatine Kinase 36 U/L (30-135); Creatinine Clearance Estimated 60 mL/min (50-200); Estimated Glomerular Filt Rate 70 ml/min (>60); GFR (African American) 84 ML/MIN (>60); Globulin 4.8 g/dL (1.3-3.2); Glucose 152 mg/dl (74-100); Total Protein,Serum 8.2 g/dl (6.3-8.2)
[2023-12-20 15:00] LABS: Magnesium 1.6 mg/dl (1.6-2.3)
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
[2023-12-20] MEDS: PREGABALIN 50MG CAPSULE 50 MG PO (15:31)
--- NOTE | 2023-12-20 15:47 | PC.NURSE ---
I rounded on the pt and helped reposition her, took her a blanket. pt vss. no new needs voiced. call muñoz in reach.
[2023-12-20] MEDS: CEFDINIR 300MG CAPSULE 300 MG PO (16:20)
[2023-12-20] MEDS: SODIUM CHLORIDE 0.9% 25ML BAG 25 ML IV (16:44)
[2023-12-20] MEDS: PROMETHAZINE HCL 25MG/ML 1ML VIAL 12.5 MG IV (16:44)
--- NOTE | 2023-12-20 20:25 | EXP.EVENT.NO ---
Daughter contacted emergency department around 8:20 PM on 12/19. Spoke to RN. Apparently, pregabalin not called in by patient's primary care provider as was allegedly discussed earlier. I am sending in 7 days of pregabalin 50 mg every night to serafin withdrawal symptoms.
--- NOTE | 2023-12-22 09:15 | PC.NURSE ---
URINE CULTURE DISCUSSED WITH DR ARMENDARIZ, PT ON CEFDINIR, NO NEW ORDERS
== END 2023-12-20 18:22 ==
PROVIDERS: Physician Assistant; Emergency Provider Emergency Medicine
DX: F19.939 Other psychoactive substance use, unspecified with withdrawal, unspecified (principal); F41.9 Anxiety disorder, unspecified; N39.0 Urinary tract infection, site not specified; B96.29 Other Escherichia coli [E. coli] as the cause of diseases classified elsewhere; E87.1 Hypo-osmolality and hyponatremia; E11.9 Type 2 diabetes mellitus without complications; I10 Essential (primary) hypertension; E03.9 Hypothyroidism, unspecified; I48.0 Paroxysmal atrial fibrillation; M62.40 Contracture of muscle, unspecified site; K21.9 Gastro-esophageal reflux disease without esophagitis; D68.51 Activated protein C resistance; R74.01 Elevation of levels of liver transaminase levels; Z86.718 Personal history of other venous thrombosis and embolism; Z66 Do not resuscitate; K82.8 Other specified diseases of gallbladder; Z79.01 Long term (current) use of anticoagulants; Z79.4 Long term (current) use of insulin
CPT/HCPCS: 80053; 81001; 82550; 83735; 85025; 87086; 87088; 87186; 96365; 96375; 99284; J0696; J2550

== ENCOUNTER 2023-12-24 20:55 | Emergency (ER) | payer MEDICARE, OTHER, MEDICAID, SELFPAY ==
[2023-12-24 20:55] VITALS: BP 151/73; PULSE 78; RESP 18; TEMP 36.5; O2SAT 98; BMI 26.5
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
--- NOTE | 2023-12-24 21:10 | PC.NURSE ---
Daughter informed nursing staff that patient had a bowel movement and needed to be cleaned up. Nursing staff in room at this time, assisting in incontinence care. No other needs voiced at this time.
--- NOTE | 2023-12-24 21:11 | PC.NURSE ---
PA at bedside
--- NOTE | 2023-12-24 21:40 | PC.NURSE ---
Patient requested something to drink, confirmed with provider that patient could have drink. Provided patient with water and straw. No further needs expressed at this time.
[2023-12-24 22:04] LABS: Chloride 96 mmol/L (98-107); Potassium 4.9 mmoL/L (3.5-5.1); Sodium 129 mmol/L (136-145)
[2023-12-24] MEDS: ACETAMINOPHEN 1,000MG/100ML VIAL 1000 MG IV (22:04)
[2023-12-24 22:05] LABS: Basophils # 0.1 K/mm3 (0-0.2); Basophils % 0.8 % (0.1-2.0); Eosinophils # 0.2 K/mm3 (0.0-0.4); Eosinophils % 2.3 % (0.1-12.0); Hematocrit 41.8 % (37.0-47.0); Hemoglobin 13.6 g/dL (12.2-16.2); Lymphocytes # 2.4 K/mm3 (0.7-4.5); Lymphocytes % 25.8 % (10-50); Mean Corpuscular HGB Conc 32.6 g/dL (31.8-35.4); Mean Corpuscular Hemoglobin 33.1 pg (27.0-31.2); Mean Corpuscular Volume 101.3 fl (81-99); Mean Platelet Volume 8.3 fl (7.4-10.4); Monocytes # 0.5 K/mm3 (0.1-1.0); Monocytes % 5.8 % (1.7-9.3); Neutrophils % 65.4 % (37.0-80.0); Platelet Count 399 K/mm3 (142-424); Red Blood Count 4.12 M/mm3 (4.20-5.40); Red Cell Distribution Width 14.6 % (11.5-17.5); White Blood Count 9.1 K/mm3 (4.8-10.8)
[2023-12-24 22:06] LABS: Blood Urea Nitrogen 18 mg/dl (7-17); Creatinine Clearance Estimated 60 mL/min (50-200); Estimated Glomerular Filt Rate 70 ml/min (>60); GFR (African American) 84 ML/MIN (>60)
[2023-12-24 22:07] LABS: Albumin Level 3.6 g/dl (3.5-5.0); Albumin/Globulin Ratio 0.8 (1.1-1.8); Alkaline Phosphatase 144 U/L (38-126); Anion Gap 7.9 mEq/L (5-15); Bilirubin,Total 0.7 mg/dl (0.2-1.3); Calcium 9.9 mg/dl (8.4-10.2); Carbon Dioxide 30 mmol/L (22.0-30.0); Globulin 4.8 g/dL (1.3-3.2); Glucose 128 mg/dl (74-100); Magnesium 1.5 mg/dl (1.6-2.3); Total Protein,Serum 8.4 g/dl (6.3-8.2)
--- NOTE | 2023-12-24 22:09 | PC.NURSE ---
Contacted roofing plant supervisor to obtain medication that is in the 2nd floor omnicell at this time.
--- NOTE | 2023-12-24 22:11 | ECG_ITS ---
APPROVED REPORT Exam: Resting ECG HR:80 bpm ECG Measurements Heart Rate 80 AXES NV 156 P 77 QRSd 96 QRS 30 QT 366 T 0 QTc 402 Conclusion SINUS RHYTHM NONSPECIFIC ST & T-WAVE ABNORMALITY BORDERLINE ECG Electronically signed by : CANDICE COATES, 12/24/2023 22:44:08
[2023-12-24] MEDS: PREGABALIN 50MG CAPSULE 50 MG PO (22:19)
--- NOTE | 2023-12-24 22:26 | PC.NURSE ---
While patient was taking PO medication this RN noted that patient had difficulty with swallowing and with thin liquid swallowing. Patient naturally tucked chin and appeared to take significant air while attempting to swallow. Patient managed to swallow without aspiration. While discussing with patient and patient's daughter at bedside they report that patient has had more difficulty in recent weeks with swallowing breads and especially thicker foods. Patient's daughter notes that she has just noticed this week that patient appears to be having difficulty swallowing water as well. Discussed concerns with ER provider.
[2023-12-24 22:45] LABS: Alanine Aminotransferase 494 U/L (12-78); Aspartate Amino Transferase 666 U/L (14-36)
[2023-12-24] MEDS: MAGNESIUM SULFATE IN WATER 2 GM/50 ML PIGGYBACK IV (22:46)
--- NOTE | 2023-12-24 23:48 | PC.NURSE ---
Gave report to Maira at [facility].
[2023-12-25 00:22] VITALS: BP 158/80; PULSE 85; RESP 18; TEMP 36.6; O2SAT 95
== END 2023-12-25 00:23 ==
PROVIDERS: Physician Assistant; Emergency Provider Emergency Medicine
DX: F41.0 Panic disorder [episodic paroxysmal anxiety] (principal); E83.42 Hypomagnesemia; R74.01 Elevation of levels of liver transaminase levels; E87.1 Hypo-osmolality and hyponatremia; R06.02 Shortness of breath; K21.9 Gastro-esophageal reflux disease without esophagitis; E03.9 Hypothyroidism, unspecified; E11.9 Type 2 diabetes mellitus without complications; I10 Essential (primary) hypertension; Z79.84 Long term (current) use of oral hypoglycemic drugs
CPT/HCPCS: 80053; 83735; 85025; 93005; 96365; 96375; 99284; J0131; J3475

== ENCOUNTER 2024-01-16 12:30 | Outpatient (POV) | payer MEDICARE, OTHER, MEDICAID, SELFPAY ==
[2024-01-16 12:55] VITALS: BP 142/79; PULSE 91; RESP 18; O2SAT 98; BMI 25.0
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
== END 2024-01-16 23:59 | disposition home or self-care (01) ==
PROVIDERS: Visit Provider Nurse Practitioner Family
DX: S22.081A Stable burst fracture of T11-T12 vertebra, initial encounter for closed fracture; M51.16 Intervertebral disc disorders with radiculopathy, lumbar region; M51.14 Intervertebral disc disorders with radiculopathy, thoracic region; Z73.89 Other problems related to life management difficulty; Z79.01 Long term (current) use of anticoagulants; Z79.4 Long term (current) use of insulin; E11.65 Type 2 diabetes mellitus with hyperglycemia
CPT/HCPCS: 99202; G0463

== ENCOUNTER 2024-09-24 13:08 | Outpatient (CLI) | payer MEDICARE, OTHER, MEDICAID, SELFPAY | END 2024-09-24 23:59 | disposition home or self-care (01) | LOC: LAB.CARL 13:10 | PROVIDERS: PCP Family Medicine Hospice and Palliative Medicine; Visit Provider Family Medicine Hospice and Palliative Medicine | DX: S81.802A Unspecified open wound, left lower leg, initial encounter (principal) | CPT/HCPCS: 87070; 87077; 87205 ==

== ENCOUNTER 2025-05-14 13:08 | Outpatient (CLI) | payer MEDICARE, OTHER, MEDICAID, SELFPAY ==
--- NOTE | 2025-05-14 13:12 | XR_ITS ---
FINAL REPORT CLINICAL HISTORY: right hand pain contracted COMPARISON: None FINDINGS: RIGHT HAND Three views demonstrate no acute fracture or dislocation. There is ulnar deviation of the 2nd and 3rd MCP joints. 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 No bony erosion seen. The soft tissues are unremarkable. IMPRESSION: Degenerative/chronic changes without acute bony abnormality. Reviewed, Interpreted and Dictated by Paul Levin MD Transcribed by Stephany Márquez Authenticated and [facility]
--- NOTE | 2025-05-14 13:12 | XR_ITS ---
FINAL REPORT CLINICAL HISTORY: left hand pain severely contracted COMPARISON: None FINDINGS: LEFT HAND Three views demonstrate the hand is held in flexion and difficult to evaluate. There is no obvious acute fracture or dislocation. There is ulnar deviation of the 2nd and 3rd MCP joints. No definite bony erosion. The soft tissues are unremarkable. IMPRESSION: Chronic changes without obvious acute process. Reviewed, Interpreted and Dictated by Paul Levin MD Transcribed by Stephany Márquez Authenticated and . [facility]
--- OUTSIDE RECORDS SUMMARY | 2025-05-14 13:13 | XMS_ITS | Encounter Summary ---
Author Organization Healthcare Address [address] [place] [address] Care Team Providers Care Balance And Hairspring Assembler Name Role Phone Pcp, No Primary Care Provider Unavailabl e Encounter Details Date Type Department Care Team ([facility] st Contact Info) Description 11/29/2023 Orders Only External Location [address] [place] [id number] Provider, External Social History Tobacco Use Types Packs/Day Years Used Date Smoking Tobacco: Never Smokeless Tobacco: Never Alcohol Use Standard Drinks/Week Comments Never 0 (1 standard drink = 0.6 oz pur e alcohol) CAGE ASSESSMENT Answer Date Recorded Cage unable to access Not on file 11/30/2023 Cage max number of drinks Not on file 2023 Cage Beverages a week Not on file 11/30/2023 Have you ever felt you should CUT down on your d rinking? 0 11/30/2023 Have you been ANNOYED by people criticizing your drinking? 0 11/30/2023 Have you felt GUILTY about your drinking? 0 11/30/2023 Have you had a drink first t roselia in the morning (EYE-UI DEVELOPER WITH ANGULAR JS) to steady your nerves or to get rid of a hangover? 0 11/30/2023 CAGE Questionnaire Score 0 024 Comments No Sex and Gender Information Value Date Recorded Sex Assigned at Female 12/25/2022 7:52 PM EDT Legal Sex Female 8:00 PM EDT Gender Identity Female 12/25/2022 7:52 PM EDT Sexual Orientation Straight 12/25/2022 7: 52 PM EDT documented as of this encounter Functional Status * Calculated C-SSRS Risk Score (Lifetime/Recent) Answer Date of Assessment Author No Risk Indicated 12/02/2023 8:00 PM EDT Marcio Robles RN * Question Answer Date of Assessment Author 1. Wish to be (Past 1 Month) No 024 8:00 PM EDT Marcio Robles RN 2. Non-Specific Active Suici edmund Thoughts (Past 1 Month) No 12/02/2023 8:00 PM EDT Andrew Robles RN 6. Suicidal Behavior (Lifetime) No 8:00 PM EDT Marcio Robles RN documented as of this encounter Plan of Treatment Not on file documented as of this encounter Procedures Procedure Name Priority Date/Time Associated Diagnosis Comments XR OUTSIDE IMAGES 11/29/2023 2:47 PM EDT documented in this encounter Results * XR OUTSIDE IMAGES (11/29/2023 2:47 PM EDT) Anatomical Region Laterality Modality Radiographic Leisa ging 11/29/2023 2:47 PM EDT us External Provider IMG XR PROCEDURES Final Result documented in this encounter Visit Diagnoses Not on filedocumented in this encounter Additional Health Concerns 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 Source: [facility]. 02/17/2023 Assessment Noted Time A fall risk assessment has been complete d for the patient 08/01/2023 10:50 AM EST A Body Mass Index follow-up plan has been documented for the patient 12/03/2023 10:13 AM EDT documented as of this encounter Care Teams Balance And Hairspring Assembler Relationship Specialty Start Date End Date Pcp, No [address] [place] [address] PCP - General Family Medicine 12/25/22 documented as of this encounter
--- OUTSIDE RECORDS SUMMARY | 2025-05-14 13:14 | XMS_ITS | Encounter Summary ---
Author Organization Healthcare Address [address] [place] [address] Care Team Providers Care Call Manager Name Role Phone Pcp, No Primary Care Provider Unavailabl e Encounter Details Date Type Department Care Team ([facility] st Contact Info) Description 11/29/2023 Orders Only External Location [address] [place] [phone] Provider, External Social History Tobacco Use Types [...] drink first t roselia in the morning (EYE-NAIL MILL WORKER) to steady your nerves or to get [...] documented as of this encounter Care Teams Call Manager Relationship Specialty Start Date End Date Pcp, No [address] [place] [address] PCP - General Family Medicine 12/25/22 documented as of this encounter
--- OUTSIDE RECORDS SUMMARY | 2025-05-14 13:15 | XMS_ITS | Encounter Summary ---
Author Organization Healthcare Address [address] [place] [address] Care Team Providers Care Copier Technician Name Role Phone Pcp, No Primary Care Provider Unavailabl e Encounter Details Date Type Department Care Team (Late st Contact Info) Description 02/05/2023 Lab Requisition [facility] [address] [place] [address] Melissa Gu MD [address] [place] [address] Encounter for general adult medical examination without abnormal findings Social History Tobacco Use Types Packs/Day Years Used Date Smoking Tobacco: Never Smokeless Tobacco: Never Alcohol Use Standard Drinks/Week Comments Never 0 (1 standard drink = 0.6 oz pur e alcohol) CAGE ASSESSMENT Answer Date Recorded Cage unable to access Not on file 02/06/2023 Cage max number of drinks Not on file 2022 Cage Beverages a week Not on file 02/06/2023 Have you ever felt you should CUT down on your d rinking? 0 02/06/2023 Have you been ANNOYED by people criticizing your drinking? 0 02/06/2023 Have you felt GUILTY about your drinking? 0 02/06/2023 Have you had a drink first t roselia in the morning (EYE-CRANKSHAFT STRAIGHTENER) to steady your nerves or to get rid of a hangover? 0 02/06/2023 CAGE Questionnaire Score 0 023 Comments No Sex and Gender Information Value Date Recorded Sex Assigned at Female 12/25/2022 7:52 PM EDT Legal Sex Female 8:00 PM EDT Gender Identity Female 12/25/2022 7:52 PM EDT Sexual Orientation Straight 12/25/2022 7: 52 PM EDT documented as of this encounter Functional Status * Calculated C-SSRS Risk Score (Lifetime/Recent) Answer Date of Assessment Author No Risk Indicated 02/06/2023 8:00 PM EDT Deborah Lay RN * Question Answer Date of Assessment Author 1. Wish to be (Past 1 Month) No 02/06/2023 8:00 PM EDT Deborah Lay RN 2. Non-Specific Active Suici edmund Thoughts (Past 1 Month) No 02/06/2023 8:00 PM EDT Wang Lay RN 3. Active Suicidal Ideation with any Methods (Not Plan) Without Intent to Act (Past 1 Month) No 02/06/2023 8:00 PM EDT Deborah Lay RN 4. Active Suicidal Ideation with Some Intent to Act, Without Specific Plan (Past 1 Month) No 02/06/2023 8:00 PM EDT Deborah Lay RN 5. Active Suicidal Ideation with Specific Plan and Intent (Past 1 Month) No 02/06/2023 8:00 PM EDT Deborah Lay RN 6. Suicidal Behavior (Lifetime) No 8:00 PM EDT Deborah Lay RN documented as of this encounter Plan of Treatment Not on file documented as of this encounter Procedures Procedure Name Priority Date/Time Associated Diagnosis Comments MULTI DRUG RESISTANCE TEST Routine 02/05/2023 9:30 AM EDT Encounter for general adult medical examination without abnormal findings documented in this encounter Results * Multi Drug Resistance Test (02/05/2023 9:30 AM EDT) Culture No growth at day 2 02/07/2023 11:30 AM EDT [facility] Swab (Nares and Ava Rectal) 02/05/2023 9:30 AM EDT 02/05/2023 9:50 AM EDT us Melissa Tamayo MD LAB MICROBIOLOGY - GENERAL ORDERABLES Final Result [facility] [address] [place] [address] documented in this encounter Visit Diagnoses Diagnosis Encounter for general adult medical examination without abnormal findings documented in this encounter Additional Health Concerns 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 Source: [facility]. 02/17/2023 documented as of this encounter Care Teams Copier Technician Relationship Specialty Start Date End Date Pcp, Neli [address] [place] [address] PCP - General Family Medicine 12/25/22 documented as of this encounter
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
--- OUTSIDE RECORDS SUMMARY | 2025-05-14 13:15 | XMS_ITS | Encounter Summary ---
Author Organization Healthcare Address [address] [place] [address] Care Team Providers Care Digital Intern Name Role Phone Pcp, No Primary Care Provider Unavailabl e Encounter Details Date Type Department Care Team ([facility] st Contact Info) Description 11/29/2023 Orders Only External Location [address] [place] [phone] Provider, External Social History Tobacco Use Types [...] drink first t roselia in the morning (EYE-EXAMINATION SUPERVISOR) to steady your nerves or to get [...] Procedure Name Priority Date/Time Associated Diagnosis Comments US OUTSIDE IMAGES 11/29/2023 4:03 PM EDT documented in this encounter Results * US OUTSIDE IMAGES (11/29/2023 4:03 PM EDT) Anatomical Region Laterality Modality Ultrasound 11/29/2023 4:03 PM EDT us External Provider IMG US PROCEDURES Final Result documented in this encounter [...] documented as of this encounter Care Teams Digital Intern Relationship Specialty Start Date End Date Pcp, No [address] [place] [address] PCP - General Family Medicine 12/25/22 documented as of this encounter
--- OUTSIDE RECORDS SUMMARY | 2025-05-14 13:15 | XMS_ITS | Clinical Summary ---
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 Radha Drake Nonspecific immune reaction Medications Medication Instructions Start Date Stop Date Generic Name [facility] Provider HYDROXYCHLOROQUINE SULFATE 200 MG TABS Take 1 tablet by mouth twice a day hydroxychloroquine 34733324750 [facility] VITAMIN E 268 MG (400 UNIT) CAPS Take 1 capsule by mouth once a day vitamin e 46389461385 [facility] VITAMIN D3 10 MCG (400 UNIT) CAPS Take 1 capsule by mouth once a week cholecalciferol (vitamin d3) 46052350187 [facility] FUROSEMIDE 40 MG TABS Take 1 tablet by mouth once a day furosemide 54773636301 [facility] WARFARIN SODIUM 6 MG TABS Take 1 tablet by mouth once a day warfarin 34404642823 [facility] ROSUVASTATIN CALCIUM 5 MG TABS Take 1 tablet by mouth once a day rosuvastatin 46116035139 [facility] LISINOPRIL 40 MG TABS Take 1 tablet by mouth once a day lisinopril 46612623266 [facility] LEVOTHYROXINE SODIUM 75 MCG TABS Take 1 tablet by mouth once a day levothyroxine 66619657143 [facility] PANTOPRAZOLE SODIUM 40 MG TBEC Take 1 tablet by mouth once a day pantoprazole 72830227795 [facility] TRAMADOL HCL 50 MG TABS Take 1 tablet by mouth four times a day as needed for pain tramadol 85865209783 Gena Gonzalezr Medications Administered No information available. Allergies, Adverse Reactions, Alerts Allergy Name Reaction Description Start Date Severity Statu s Provider NYSTATIN Moderate Active Gena castellano Results Date Name Value Unit Range Flag Description Office Visit: RM2 MEDS REVIEW Done Documenta tion of current medications (procedure) ORALTOBACUSE Never Tobacco smoking status SMOK STATUS Never smoker Toba account manager employee benefits smoking status Plan of Care No information available. Procedures No information available. Vital Signs Date Name Value Unit Description BMI (Body Mass Index) 29.49 kg/m2 Bod y Mass Index (Ratio) Body Temperature 97.1 [degF] temperat ure E&M BP Diastolic 92 mm[Hg] blood pressu re, diastolic BP Systolic 140 mm[Hg] blood pressur e, systolic Heart Rate 60 /min pulse rate Height 68 [in_us] height E&M Respiratory Rate 16 /min respirat ory rate E&M Weight Measured 194 [lb_av] weight E& M Weight Measured 194 [lb_av] weight E& M Immunizations No information available. Advance Directives Directive Description Start Date NONE EST. AT THIS TIME
--- OUTSIDE RECORDS SUMMARY | 2025-05-14 13:15 | XMS_ITS | Encounter Summary ---
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) documented in this encounter Results * (ABNORMAL) Protime-INR (11/18/2023 11:37 AM EDT) Prothrombin Time 16.9(H) 12.0 - 14.3 sec LAB COAGULATION METHOD 11/18/2023 3:01 PM EDT [facility] INR 1.4(H) 0.9 - 1.1 LAB COAGULATION METHOD 11/18/2023 3:01 PM EDT [facility] Blood Venous blood specimen / Unknown 11/18/2023 11:37 AM EDT 11/18/2023 2:28 PM EDT Narrative [facility] - 11/18/2023 3:01 PM EDT OPTIMAL INR RANGES FOR PATIENT ON ORAL ANTICOAGULANT THERAPY Prevention of venous thromboembolism INR 2.0 to 3.0 In patients with heart disease: Atrial fibrillation INR 2.0 to 3.0 Valvular heart disease INR 2.0 to 3.0 Tissue heart valves INR 2.0 to 3.0 Mechanical prosthetic valves INR 2.5 to 3.5 Prevention of recurrent NM INR 2.5 to 3.5 us Provider Not In System LAB BLOOD ORDERABLES F inal Result [facility] [address] [place] [address] documented in this encounter Visit Diagnoses Diagnosis Hereditary deficiency of other clotting factors documented in this encounter Additional Health Concerns 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 Source: [facility]. 02/17/2023 Assessment Noted Time A fall risk assessment has been complete d for the patient 08/01/2023 10:50 AM EST A Body Mass Index follow-up plan has been documented for the patient 08/11/2023 11:52 PM EST documented as of this encounter Care Teams Drug Inspector Relationship Specialty Start Date End Date Pcp, [place] [address] PCP - General Family Medicine 12/25/22 documented as of this encounter
--- OUTSIDE RECORDS SUMMARY | 2025-05-14 13:15 | XMS_ITS | Encounter Summary ---
Author Organization Healthcare Address [address] [place] [address] Care Team Providers Care Beehive Kiln Supervisor Name Role Phone Pcp, No Primary Care Provider Unavailabl e Encounter Details Date Type Department Care Team ([facility] st Contact Info) Description 11/29/2023 Orders Only External Location [address] [place] [phone] Provider, External Social History Tobacco Use Types [...] drink first t roselia in the morning (EYE-HAND PATCHER) to steady your nerves or to get [...] Suicidal Behavior (Lifetime) No 8:00 PM EDT Marico Robles RN documented as of this encounter [...] documented as of this encounter Care Teams Beehive Kiln Supervisor Relationship Specialty Start Date End Date Pcp, No [address] [place] [address] PCP - General Family Medicine 12/25/22 documented as of this encounter
--- OUTSIDE RECORDS SUMMARY | 2025-05-14 13:15 | XMS_ITS | Encounter Summary ---
Author Organization [facility] Address [address] [place] [address] Care Team Providers Care Services Tech Name Role Phone Pcp, No Primary Care Provider Unavailabl e Encounter Details Date Type Department Care Team (Late st Contact Info) Description 01/08/2023 Lab Requisition [facility] [address] [place] [address] Melissa Gu MD [address] [address] Encounter for general adult medical examination without abnormal findings Social History Tobacco Use Types Packs/Day Years Used Date Smoking Tobacco: Never Smokeless Tobacco: Never Alcohol Use Standard Drinks/Week Comments Never 0 (1 standard drink = 0.6 oz pur e alcohol) Comments No Sex and Gender Information Value [...] Diagnosis Comments MULTI DRUG RESISTANCE TEST Routine 01/08/2023 12:00 PM EDT Encounter for general adult medical examination without abnormal findings documented in this encounter Results * Multi Drug Resistance Test (01/08/2023 12:00 PM EDT) Culture No growth at day 2 01/10/2023 8:51 AM EDT [facility] Swab (Nares and Ava Rectal) 01/08/2023 12:00 PM EDT 01/08/2023 12:26 PM EDT us Melissa Tamayo MD LAB MICROBIOLOGY - GENERAL ORDERABLES Final Result [facility] [address] [place] [address] documented in this encounter Visit Diagnoses Diagnosis Encounter for general adult medical examination without abnormal findings documented in this encounter Additional Health Concerns Infection Onset Date Last Indicated Resolved Time Respiratory Rule-Out 01/18/2023 01/18/2023 023 5:15 PM EDT COVID-19 Rule-Out 01/27/2023 01/27/2023 01/27/2023 12:40 PM EDT Respiratory Rule-Out 01/27/2023 01/27/2023 023 1:11 PM EDT 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 Source: [facility]. 02/17/2023 documented as of this encounter Care Teams Services Tech Relationship Specialty Start Date End Date Pcp, Neli [address] [place] [address] PCP - General Family Medicine 12/25/22 documented as of this encounter
--- OUTSIDE RECORDS SUMMARY | 2025-05-14 13:15 | XMS_ITS | Encounter Summary ---
Author Organization Healthcare Address [address] [place] [address] Care Team Providers Care General Handling Supervisor Name Role Phone Pcp, No Primary Care Provider Unavailabl e Encounter Details Date Type Department Care Team ([facility] st Contact Info) Description 11/29/2023 Orders Only External Location [address] [place] [id number] Provider, External Social History Tobacco Use Types [...] drink first t roselia in the morning (EYE-SPLICER OPERATOR) to steady your nerves or to get [...] Procedure Name Priority Date/Time Associated Diagnosis Comments CT OUTSIDE IMAGES 11/29/2023 3:02 PM EDT documented in this encounter Results * CT OUTSIDE IMAGES (11/29/2023 3:02 PM EDT) Anatomical Region Laterality Modality Computed Tomogra phy 11/29/2023 3:02 PM EDT External Provider IMG CT PROCEDURES Final Result documented in this encounter [...] documented as of this encounter Care Teams General Handling Supervisor Relationship Specialty Start Date End Date Pcp, No [address] [place] [address] PCP - General Family Medicine 12/25/22 documented as of this encounter
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
== END 2025-05-14 23:59 | disposition home or self-care (01) ==
LOC: RAD 13:09
PROVIDERS: PCP Family Medicine Hospice and Palliative Medicine; Visit Provider Student in an Organized Health Care Education/Training Program
DX: M19.041 Primary osteoarthritis, right hand (principal); M79.642 Pain in left hand; R93.6 Abnormal findings on diagnostic imaging of limbs
CPT/HCPCS: 73130